=== PATIENT | female | born 1990 | race Caucasian/White ===

== ENCOUNTER 2016-08-25 14:44 | Emergency (ER) | payer BC ==
[2016-08-25 14:58] VITALS: BP 134/65
[2016-08-25] MEDS ORDERED: Sodium Chloride 0.9% 1,000 ML IV ONE (15:36)
[2016-08-25] MEDS ORDERED: Sodium Chloride 0.9% 10 ML Syringe FLUSH PRN (15:36)
[2016-08-25] MEDS ORDERED: Metoclopramide 10 MG/2 ML SDV IVPUSH ONE (15:36)
--- NOTE | 2016-08-25 15:37 | EDM.PDOC ---
ED HPI GENERAL MEDICAL PROBLEM - General Chief Complaint: Gastrointestinal Problem Stated Complaint: Nausea, vomiting Time Seen by Provider: 08/25/16 15:25 Source of Information: Reports: Patient, RN Notes Reviewed History Limitations: Reports: No Limitations - History of Present Illness INITIAL COMMENTS - FREE TEXT/NARRATIVE: 25 year old female presents to the ED with 2 day history of nausea and vomiting. She says she has been unable to keep any food or fluids down for the past two days. She feels lightheaded at times and has a headache. She reports a fever of 100.3 yesterday. No abdominal pain. Denies diarrhea. She was diagnosed with bacterial vaginosis and is on an antibiotic. She took 1 dose of the antibiotic prior to onset of symptoms and since has not been able to take the antibiotic due to the nausea and vomiting. She is unsure of the name of the antibiotic. She is , reportedly 12 weeks 3 days. [address] Horton and Lelo Almaraz ALTERNATIVE MEDICINE PRACTITIONER. She has not had this severe of nausea and vomiting with . She has two types of nausea medications at home for nausea assocaited with . She has tried taking it but says it's not helping. She is unsure of the names and it sounds like it's zofran and diclegis. Headache Pain Score (Numeric/FACES): 4 - Related Data Allergies Allergy/AdvReac Type Severity Reaction Status Date / Time ibuprofen Allergy Other Verified 08/24/15 08:04 venom-honey bee Allergy Other Verified 08/24/15 08:04 [bee venom (honey bee)] Home Meds: Home Meds Vit/Iron Fumarate/FA [ Vitamin Tablet] 1 each PO DAILY [History] valACYclovir [Valtrex] 500 mg PO BID 08/24/15 [History] Acetaminophen [Tylenol] 650 mg PO Q4H PRN #0 tablet 08/26/15 [Rx] Acetaminophen/oxyCODONE [Percocet 325-5 MG] 2 tab PO Q6H PRN #30 tablet [Rx] Benzocaine/Menthol [Dermoplast Pain Relief Draper] 1 spray TOP ASDIRECTED PRN #0 canister 08/26/15 [Rx] Docusate Sodium [Colace] 100 mg PO BID PRN #0 cap 08/26/15 [Rx] Past Medical History Genitourinary History: Reports: UTI, 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 No Lesions. 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 Has not been cleared. pt cannot recall which knee. Social & Family History - Family History Cardiac: Reports: Hypertension, Other (See Below) Endocrine/Metabolic: Reports: Diabetes, type II (PGM), Hypothyroidism (PGM) Oncologic: Reports: Breast (MOTHER'S SIDE) - Tobacco Use Smoking Status *Q: Former Smoker Used Tobacco, but Quit: Yes Month Tobacco Last Used: 3 years ago quit Second Hand Smoke Exposure: No - Caffeine Use Caffeine Use: Reports: Soda - Recreational Drug Use Recreational Drug Use: No ED ROS GENERAL - Review of Systems Review Of Systems: See Below Constitutional: Reports: Fever. Denies: Chills, Diaphoresis HEENT: Reports: No Symptoms. Denies: Throat Pain Respiratory: Reports: No Symptoms. Denies: Shortness of Breath, Cough Cardiovascular: Reports: No Symptoms. Denies: Chest Pain GI/Abdominal: Reports: Nausea, Vomiting. Denies: Abdominal Pain, Diarrhea : Reports: No Symptoms. Denies: Dysuria, Flank Pain, Frequency Neurological: Reports: Headache ED EXAM - Physical Exam Exam: See Below Exam Limited By: No Limitations General Appearance: Alert, WD/WN, No Apparent Distress Eye Exam: Bilateral Eye: EOMI, PERRL Throat/Mouth: Normal Inspection, Normal Oropharynx, Other (dry mucous membranes ) Respiratory/Chest: No Respiratory Distress, Lungs Clear, Normal Breath Sounds Cardiovascular: Regular Rate, Rhythm GI/Abdominal: Normal Bowel Sounds, Soft, Non-Tender, No Organomegaly, No Distention. No: Guarding, Rigid, Rebound, Tender Back Exam: Normal Inspection, Full Range of Motion. No: CVA Tenderness (L), CVA Tenderness (R) Neurological: Alert, Oriented, Normal Cognition, No Motor/Sensory Deficits Skin Exam: Warm, Dry, Intact Course - Vital Signs Last Recorded V/S: Last Vital Signs Temp 98.1 F 08/25/16 14:55 Pulse 99 08/25/16 14:55 Resp 16 08/25/16 14:55 BP 134/65 08/25/16 14:55 Pulse Ox 100 08/25/16 14:55 - Orders/Labs/Meds Orders: Active Orders 24 hr Category Date Time Status Heart Tones [RC] ASDIRECTED Care 08/25/16 15:36 Active Peripheral IV Care [RC] . DIRECTED Care 08/25/16 15:37 Active Sodium Chloride 0.9% [Saline Flush] Med 08/25/16 15:36 Active 10 ml FLUSH ASDIRECTED PRN Peripheral IV Insertion Adult [OM.PC] Stat Oth 08/25/16 15:36 Ordered Medication Orders Sodium Chloride (Saline Flush) 10 ml FLUSH ASDIRECTED PRN PRN Reason: Keep Vein Open Last Admin: 08/25/16 15:46 Dose: 10 ml Meds: Medications Generic Name Dose Route Start Last Admin Trade Name Freq PRN Reason Stop Dose Admin Sodium Chloride 10 ml 08/25/16 15:36 08/25/16 15:46 Saline Flush FLUSH 10 ml ASDIRECTED PRN Administration Keep Vein Open Discontinued Medications Generic Name Dose Route Start Last Admin Trade Name Freq PRN Reason Stop Dose Admin Sodium Chloride 1,000 mls @ 999 mls/hr 08/25/16 15:36 08/25/16 15:44 Normal Saline IV 08/25/16 16:36 999 mls/hr ONETIME ONE Administration Metoclopramide HCl 7.5 mg 08/25/16 15:36 08/25/16 15:45 Reglan IVPUSH 08/25/16 15:37 7.5 mg ONETIME ONE Administration - Re-Assessments/Exams Free Text/Narrative Re-Assessment/Exam: She has no abdominal pain or tenderness, imaging is not indicated. She reports a fever of 100.3 but is afebrile here. She has no diarrhea and no true fever, therefore gastroenteritis is unlikely. I suspect her symptoms are related to antibiotic side effects. Will give a liter of IV fluids and Reglan for nausea. Then will discharge home. She is to f/u with Dr. Horton or Lelo Almaraz this week. Departure - Departure Time of Disposition: 17:27 Disposition: Home, Self-Care 01 Condition: fair Clinical Impression: Nausea and vomiting during - Discharge Information Referrals: Rosmery Morse PA-C [Primary Care Provider] - Forms: ED Department Discharge Additional Instructions: Follow-up with Dr. Horton or Lelo Almaraz ALTERNATIVE MEDICINE PRACTITIONER this week for recheck I suspect your symptoms are related to the antibiotic you are taking. Continue to take antibiotic with food when able. Continue to take your prescriptions for nausea as directed. Drink fluids and advance your diet as tolerated Return to ER with any new or worsening symptoms. - My Orders Last 24 Hours: My Active Orders 08/25/16 15:36 Heart Tones [RC] ASDIRECTED Sodium Chloride 0.9% [Saline Flush] 10 ml FLUSH ASDIRECTED PRN Peripheral IV Insertion Adult [OM.PC] Stat 08/25/16 15:37 Peripheral IV Care [RC] . DIRECTED - Assessment/Plan Last 24 Hours: My Active Orders 08/25/16 15:36 Heart Tones [RC] ASDIRECTED Sodium Chloride 0.9% [Saline Flush] 10 ml FLUSH ASDIRECTED PRN Peripheral IV Insertion Adult [OM.PC] Stat 08/25/16 15:37 Peripheral IV Care [RC] . DIRECTED
== END 2016-08-25 17:15 | disposition home or self-care (01) ==
LOC: JD.ED 14:44
DX: O21.9 Vomiting of pregnancy, unspecified (principal); Z3A.12 12 weeks gestation of pregnancy; Z79.899 Other long term (current) drug therapy; Z87.891 Personal history of nicotine dependence; Z88.8 Allergy status to other drugs, medicaments and biological substances; Z91.030 Bee allergy status
CPT/HCPCS: 96361; 96374; 99284; J2765; J7040; J7050

== ENCOUNTER 2016-10-05 07:04 | Observation (INO) | payer BC ==
[2016-10-05] MEDS ORDERED: Misoprostol 200 MCG Tab PO ONE (08:32)
--- NOTE | 2016-10-05 08:49 | PCM.LDHP ---
L&D History of Present Illness - General Date of Service: 10/05/16 Admit Problem/Dx: Admission Diagnosis/Problem Admission Diagnosis/Problem Source of Information: Patient History Limitations: Reports: No Limitations - History of Present Illness Introduction:: 25-year-old 002 [place] 03/07/17 and estimated gestational age 17+ weeks patient presented to clinic and no heart tones had been observed on ultrasound performed on Friday10/01/16 after having had ultrasound that showed no heart tone activity for over 1 minute of continued observation repeat ultrasound was obtained on 10/04/16 and again no heart tone activity ration is placed in labor and delivery for induction of miscarriage (missed ) blood type O-positive antibody screen negative hemoglobin hematocrit on 08/14/1712.2/39.5 platelets 356,000 Pap smear negative immune rubella titer nonreactive serology patient did have Gardnerella vaginalis on urine culture treated hepatitis B surface antigen negative HIV negative and GC chlamydia probe negative Improves with: Reports: None Worsens with: Reports: None - Related Data Allergies/Adverse Reactions: Allergies Allergy/AdvReac Type Severity Reaction Status Date / Time ibuprofen Allergy Other Verified 10/05/16 08:33 venom-honey bee Allergy Other Verified 10/05/16 08:33 [bee venom (honey bee)] Home Medications: Home Meds Vit/Iron Fumarate/FA [ Vitamin Tablet] 1 each PO DAILY [History] Past Medical History Genitourinary History: Reports: UTI, Recurrent 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 No Lesions. Musculoskeletal History: Reports: Other (See Below) Other Musculoskeletal History: right elbow and right "pinky" toe fracture Psychiatric History: Reports: Anxiety, Depression Hematologic History: Reports: Anemia Oncologic (Cancer) History: Reports: Other (See Below) Other Oncologic History: HPV Dermatologic History: Reports: Eczema - Infectious Disease History Infectious Disease History: Reports: MRSA Other Infectious Disease History: 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 Has not been cleared. pt cannot recall which knee. - Past Surgical History HEENT Surgical History: Reports: Oral Surgery Social & Family History - Family History Cardiac: Reports: Hypertension, Other (See Below) Endocrine/Metabolic: Reports: Diabetes, type II, Hypothyroidism Oncologic: Reports: Breast - Tobacco Use Smoking Status *Q: Former Smoker Used Tobacco, but Quit: Yes Month Tobacco Last Used: 2014 Second Hand Smoke Exposure: No - Caffeine Use Caffeine Use: Reports: Soda - Recreational Drug Use Recreational Drug Use: No H&P Review of Systems - Review of Systems: Review Of Systems: See Below General: Reports: No Symptoms HEENT: Reports: No Symptoms Pulmonary: Reports: No Symptoms Cardiovascular: Reports: No Symptoms Gastrointestinal: Reports: No Symptoms Genitourinary: Reports: No Symptoms Musculoskeletal: Reports: No Symptoms Skin: Reports: No Symptoms Psychiatric: Reports: No Symptoms Neurological: Reports: No Symptoms Hematologic/Lymphatic: Reports: No Symptoms Immunologic: Reports: No Symptoms L&D Exam - Exam Exam: See Below - Vital Signs Vital Signs: Last Vital Signs Temp 98.0 F 10/05/16 07:26 Pulse 92 10/05/16 07:26 Resp 18 10/05/16 07:26 BP 125/86 10/05/16 07:26 Pulse Ox 99 10/05/16 07:26 Weight: 173 lb 6.4 oz - OB Specific Fundal Height In cm: 17 Heart Tones per Min: 0 Heart Rate (FHR) Variability: Absent; Amplitude Undetectable - Exam General: Alert, Oriented HEENT: Mucosa Moist & [place] Neck: Supple, Trachea Midline Lungs: Clear to Auscultation, Normal Respiratory Effort Cardiovascular: Regular Rate, Regular Rhythm Abdomen: Normal Bowel Sounds, Soft, Pelvis Stable Genitourinary: Normal external exam Back Exam: Normal Inspection, Full Range of Motion Extremities: Normal Inspection Skin: Warm, Dry, Intact Neurological: Reflexes Equal Bilateral Psychiatric: Alert, Normal Affect, Normal Mood - Problem List (1) Missed with demise before 20 completed weeks of gestation SNOMED Code(s): 59581501 ICD Code: O02.1 - MISSED Status: Acute Current Visit: No (2) 17 weeks gestation of SNOMED Code(s): 33947663 ICD Code: Z3A.17 - 17 WEEKS GESTATION OF Status: Acute Current Visit: No Problem List Initiated/Reviewed/Updated: No Orders Last 24hrs: Active Orders 24 hr Category Date Time Status Regular Diet [DIET] Diet 10/05/16 Breakfast Active Assessment/Plan Comment:: Plan medication to complete miscarriage
[2016-10-05] MEDS ORDERED: Sodium Chloride 0.9% 10 ML Syringe FLUSH PRN (08:54)
[2016-10-05] MEDS: Oxytocin/Lactated Ringers 10 UNIT/1,000 ML BAG IV SCH ×2 (10:46→22:17)
[2016-10-05] MEDS: Lactated Ringers 1,000 ML IV SCH ×2 (10:46→16:39)
[2016-10-05] MEDS ORDERED: Nalbuphine 20 MG/1 ML Amp IVPUSH ONE (13:56)
--- NOTE | 2016-10-05 15:07 | PCM.SN ---
- Free Text/Narrative Note: Exam revealed intact gestational sac protruding through the cervix about 4-5 cm , cervix about 4 cm. Bloody show. Stable. Will get epidural. Satisfactory progress.
[2016-10-05] MEDS ORDERED: diphenhydrAMINE 50 MG/ML SDV IVPUSH PRN (15:48)
[2016-10-05] MEDS ORDERED: ePHEDrine 50 MG/ML SDV IVPUSH PRN (15:48)
[2016-10-05] MEDS ORDERED: Bupivacaine 0.25% 10 ML SDV ONE (16:00)
[2016-10-05] MEDS: fentaNYL 100 MCG/2 ML SDV EPIDUR PRN (16:11)
[2016-10-05] MEDS: Bupivacaine/fentaNYL/NS 100 ML Bag EPIDUR SCH ×2 (16:12→22:58)
--- NOTE | 2016-10-05 16:14 | PCM.PREANE ---
Preanesthetic Assessment - Anesthesia/Transfusion/Family Hx Anesthesia History: Prior Anesthesia Without Reaction Family History of Anesthesia Reaction: No Transfusion History: No Prior Transfusion(s) Type of Transfusion Reactions: Reports: Unknown - Review of Systems General: No Symptoms Pulmonary: No Symptoms Cardiovascular: No Symptoms Gastrointestinal: No symptoms Neurological: No Symptoms Other: Reports: None - Physical Assessment O2 Sat by Pulse Oximetry: 99 Respiratory Rate: 18 Vital Signs: Last Vital Signs Temp 98.0 F 10/05/16 07:26 Pulse 92 10/05/16 07:26 Resp 18 10/05/16 07:26 BP 125/86 10/05/16 07:26 Pulse Ox 99 10/05/16 07:26 Height: 6 ft Weight: 78.653 kg ASA Class: 2 Mental Status: Alert & Oriented x3 Airway Class: Mallampati = 1 Dentition: Reports: Normal Dentition Thyro-Mental Finger Breadths: 3 Mouth Opening Finger Breadths: 3 ROM/Head Extension: Full Lungs: Clear to auscultation, Normal respiratory effort Cardiovascular: Regular Rate, Regular Rhythm - Lab Values: Laboratory Last Values WBC 9.98 K/mm3 (3.98-10.04) 10/05/16 09:12 RBC 4.55 M/mm3 (3.98-5.22) 10/05/16 09:12 Hgb 12.9 gm/L (11.2-15.7) 10/05/16 09:12 Hct 37.5 % (34.1-44.9) 10/05/16 09:12 MCV 82.4 fl (79.4-94.8) 10/05/16 09:12 MCH 28.4 pg (25.6-32.2) 10/05/16 09:12 MCHC 34.4 g/dl (32.2-35.5) 10/05/16 09:12 RDW Std Deviation 44.4 fL (36.4-46.3) 10/05/16 09:12 Plt Count 296 K/mm3 (182-369) 10/05/16 09:12 MPV 10.9 fl (9.4-12.3) 10/05/16 09:12 Neut % (Auto) 67.9 % (34.0-71.1) 10/05/16 09:12 Lymph % (Auto) 23.4 % (19.3-51.7) 10/05/16 09:12 [place] % (Auto) 6.2 % (4.7-12.5) 10/05/16 09:12 Eos % (Auto) 1.1 (0.7-5.8) 10/05/16 09:12 Baso % (Auto) 0.6 % (0.1-1.2) 10/05/16 09:12 Neut # (Auto) 6.77 K/mm3 (1.56-6.13) H 10/05/16 09:12 Lymph # (Auto) 2.34 K/mm3 (1.18-3.74) 10/05/16 09:12 [place] # (Auto) 0.62 K/mm3 (0.24-0.36) H 10/05/16 09:12 Eos # (Auto) 0.11 K/mm3 (0.04-0.36) 10/05/16 09:12 Baso # (Auto) 0.06 K/mm3 (0.01-0.08) 10/05/16 09:12 Blood Type O POSITIVE 10/05/16 09:12 Gel Antibody Screen Negative 10/05/16 09:12 - Allergies Allergies/Adverse Reactions: Allergies Allergy/AdvReac Type Severity Reaction Status Date / Time ibuprofen Allergy Other Verified 10/05/16 08:33 venom-honey bee Allergy Other Verified 10/05/16 08:33 [bee venom (honey bee)] - Blood Blood Available: No - Acknowledgements Anesthesia Type Planned: Epidural PreAnesthesia Questionnaire Cardiovascular History: Reports: None Respiratory History: Reports: None Genitourinary History: Reports: UTI, Recurrent 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 No Lesions. 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 Has not been cleared. pt cannot recall which knee. - Past Surgical History HEENT Surgical History: Reports: Oral Surgery - SUBSTANCE USE Smoking Status *Q: Former Smoker Tobacco Use Within Last Twelve Months: No Second Hand Smoke Exposure: No Days Per Week of Alcohol Use: 0 Recreational Drug Use History: No - HOME MEDS Home Medications: Home Meds Vit/Iron Fumarate/FA [ Vitamin Tablet] 1 each PO DAILY [History] - CURRENT (IN HOUSE) MEDS Current Meds: Current Medications Diphenhydramine HCl (Benadryl) 25 mg IVPUSH Q6H PRN PRN Reason: pruritis Ephedrine Sulfate (Ephedrine Sulfate) 5 mg IVPUSH ASDIRECTED PRN PRN Reason: Hypotension Fentanyl (Sublimaze) 100 mcg EPIDUR Q3H PRN PRN Reason: Pain Last Admin: 10/05/16 16:11 Dose: 100 mcg Fentanyl/Bupivacaine HCl (Fentanyl/Bupivacaine/Ns 2 Mcg-0.125% 100 Ml) 100 ml EPIDUR ASDIRECTED KAYLEIGH Last Admin: 10/05/16 16:12 Dose: 100 ml Lactated Ringer's (Ringers, Lactated) 1,000 mls @ 40 mls/hr IV ASDIRECTED KAYLEIGH Last Admin: 10/05/16 10:46 Dose: 40 mls/hr Oxytocin/Lactated Ringer's (Pitocin In Lr 10 Units/1,000 Ml) 10 unit in 1,000 mls @ 12 mls/hr IV TITRATE KAYLEIGH; 2 MUNITS/MIN PRN Reason: Protocol Last Titration: 10/05/16 13:57 Dose: 14 munits/min, 84 mls/hr Sodium Chloride (Saline Flush) 10 ml FLUSH ASDIRECTED PRN PRN Reason: Keep Vein Open Discontinued Medications Misoprostol (Cytotec) 800 mcg PO ONETIME ONE Stop: 10/05/16 08:33 Last Admin: 10/05/16 08:47 Dose: 800 mcg Nalbuphine HCl (Nubain) 10 mg IVPUSH ONETIME ONE Stop: 10/05/16 13:57
[2016-10-05] MEDS ORDERED: Misoprostol 200 MCG Tab PO PRN (19:07)
--- NOTE | 2016-10-05 19:11 | PCM.SN ---
- Free Text/Narrative Note: Examined patient about 500 ml of clots and blood removed from vagina, fetus at cervical os but not into cervical os as yet. Pitocin at 20 min/min. Patient stable.
[2016-10-05] MEDS ORDERED: Ondansetron 4 MG/2 ML SDV IVPUSH PRN (19:29)
[2016-10-05] MEDS ORDERED: Ondansetron 4 MG/2 ML SDV ONE (19:30)
[2016-10-06] MEDS ORDERED: cefOXitin 1 GM in Premix Bag 1 BAG IV SCH ×3 (00:30)
[2016-10-06] MEDS ORDERED: Oxytocin/Lactated Ringers 10 UNIT/1,000 ML BAG IV ONE (04:49)
[2016-10-06] MEDS ORDERED: Citric Acid/Sodium Citrate Solution 30 ML Cup PO ONE (05:15)
[2016-10-06] MEDS ORDERED: ceFAZolin 2 GM in Premix Bag 1 BAG IV ONE (05:18)
--- NOTE | 2016-10-06 05:26 | PCM.SN ---
- Free Text/Narrative Note: Called at 0411 hours that fetus and portions of the placenta hadn't passed out of the vagina patient examined and additional placental tissue and membranous tissue removed with ring forceps but additional tissue remains in the uterus patient will need to proceed with D&C estimated blood loss at the time of the completion of the miscarriage has been approximately 100 250 mL plus far not counting the 500 mL clot earlier in the day. Type and Rh O+ Missed now incomplete Will proceed with suction and sharp curettage
[2016-10-06] MEDS: Oxytocin/Lactated Ringers 10 UNIT/1,000 ML BAG IV SCH (05:27)
[2016-10-06] MEDS ORDERED: Citric Acid/Sodium Citrate Solution 30 ML Cup ONE (05:27)
[2016-10-06] MEDS ORDERED: Lidocaine 2% with EPINEPHrine 1:200,000 20 ML SDV ONE (05:35)
[2016-10-06] MEDS ORDERED: Midazolam 1 MG/ML 2 ML SDV ONE (05:36)
[2016-10-06] MEDS: fentaNYL 100 MCG/2 ML SDV EPIDUR PRN (05:41)
[2016-10-06] MEDS ORDERED: Metoclopramide 10 MG/2 ML SDV ONE (06:06)
[2016-10-06] MEDS ORDERED: ceFAZolin 1 GM Vial ONE (06:07)
[2016-10-06] MEDS ORDERED: Ondansetron 4 MG/2 ML SDV IVPUSH PRN ×2 (06:09→07:39)
[2016-10-06] MEDS ORDERED: fentaNYL 100 MCG/2 ML SDV IVPUSH PRN (06:09)
[2016-10-06] MEDS ORDERED: Ondansetron 4 MG/2 ML SDV ONE (06:27)
--- NOTE | 2016-10-06 06:38 | PCM.OPNOTE ---
- General Post-Op/Procedure Note Date of Surgery/Procedure: 10/06/16 Operative Procedure(s): Suction and sharp curettage [id number] Pre Op Diagnosis: Missed /incomplete Post-Op Diagnosis: Same Anesthesia Technique: Epidural Primary Surgeon: Avery Horton Secondary Surgeon: Sophia Roberts ([id number]) Anesthesia Provider: Redd Barajas Fluid Replacement, Intraop: 700 Output, Urine Amount: 30 EBL in mLs: 50 Drain/Tube Comments:: Norman catheter removed after surgery Complications: None Condition: Good Free Text/Narrative:: Intake & Output 10/05/16 10/05/16 10/06/16 14:59 22:59 06:59 Intake Total 1560 Balance 1560 Patient had delivered the fetus and portion of the placenta and labor and delivery (missed converted to an incomplete ) and subsequently taken to the operating room for dilatation and sharp and suction curettage patient was transported to operating room #2 and placed under epidural anesthesia in low dorsal lithotomy position and prepared and draped in sterile fashion SCDs in place and functioning prior surgery Ancef 2 g intravenously given prior surgery timeout performed confirming name date of and procedure is suction and sharp curettage for incomplete . The uterus sounded to 15 cm #16 suction cannula was inserted carefully suction applied and suction curettage performed followed by gentle sharp curettage followed by 12 mm cannula with suction curettage and all tissue sent to pathology for tissue evaluation. Estimated blood loss at the procedure was approximately 50 mL patient tolerated procedure well she is Rh+ patient transported postanesthesia care unit in satisfactory condition no blood transfusions required Norman catheter removed while in the operating room after completion of the procedure sponge needle sharp count correct 2
--- NOTE | 2016-10-06 06:43 | PCM.POSTAN ---
POST ANESTHESIA ASSESSMENT - MENTAL STATUS Mental Status: alert, oriented - VITAL SIGNS Pulse Rate: 84 SaO2: 100 Resp Rate: 18 Blood Pressure: 110/74 Temperature: 97.6 F - RESPIRATORY Respiratory Status: respiratory rate WNL, airway patent, O2 saturation stable, supplemental oxygen - CARDIOVASCULAR CV Status: pulse rate WNL, blood pressure stable - GASTROINTESTINAL GI Status: no symptoms - PAIN Pain Score: 0 - POST OP HYDRATION Hydration Status: adequate & stable
--- NOTE | 2016-10-06 06:48 | PCM48HPAN ---
Post Anesthesia Note - EVALUATION WITHIN 48HRS OF ANESTHETIC Vital Signs in Normal Range: Yes Patient Participated in Evaluation: Yes Respiratory Function Stable: Yes Airway Patent: Yes Cardiovascular Function Stable: Yes Hydration Status Stable: Yes Pain Control Satisfactory: Yes Nausea and Vomiting Control Satisfactory: Yes Mental Status Recovered: Yes
[2016-10-06] MEDS ORDERED: Acetaminophen/HYDROcodone 325-5 MG Tab PO PRN (07:39)
[2016-10-06] MEDS ORDERED: Acetaminophen 325 MG Tab PO PRN (07:39)
--- NOTE | 2016-10-06 08:28 | PCM.DCSUM1 ---
Discharge Summary - Hospital Course Free Text/Narrative:: [facility] LIVE Provider Simple Note Patient Name: LALO GARCIA Date of : 89 Patient Status: Observation Attending Provider: Avery Horton Date: 10/06/16 05:23 Initialization Date: 10/06/16 05:23 Addendum entered and electronically signed by Avery Horton MD 10/06/16 07 :15: Fetus and portion of placenta passed at 0405 10/06/16Friday Original Note: - Free Text/Narrative Note: Called at 0411 hours that fetus and portions of the placenta hadn't passed out of the vagina patient examined and additional placental tissue and membranous tissue removed with ring forceps but additional tissue remains in the uterus patient will need to proceed with D&C estimated blood loss at the time of the completion of the miscarriage has been approximately 100 250 mL plus far not counting the 500 mL clot earlier in the day. Type and Rh O+ Missed now incomplete Will proceed with suction and sharp curettage [facility] LIVE Post-Op/Procedure Note Patient Name: LALO GARCIA Date of : 89 Patient Status: Observation Attending Provider: Avery Horton Date: 10/06/16 06:33 Initialization Date: 10/06/16 06:33 - General Post-Op/Procedure Note Date of Surgery/Procedure: 10/06/16 Operative Procedure(s): Suction and sharp curettage [id number] Pre Op Diagnosis: Missed /incomplete Post-Op Diagnosis: Same Anesthesia Technique: Epidural Primary Surgeon: Avery Horton Secondary Surgeon: Sophia Roberts (MS3) Anesthesia Provider: Redd Barajas Fluid Replacement, Intraop: 700 Output, Urine Amount: 30 EBL in mLs: 50 Drain/Tube Comments:: Norman catheter removed after surgery Complications: None Condition: Good Free Text/Narrative:: Intake & Output 10/05/16 10/05/16 10/06/16 14:59 22:59 06:59 Intake Total 1560 Balance 1560 Patient had delivered the fetus and portion of the placenta and labor and delivery (missed converted to an incomplete ) and subsequently taken to the operating room for dilatation and sharp and suction curettage patient was transported to operating room #2 and placed under epidural anesthesia in low dorsal lithotomy position and prepared and draped in sterile fashion SCDs in place and functioning prior surgery Ancef 2 g intravenously given prior surgery timeout performed confirming name date of and procedure is suction and sharp curettage for incomplete . The uterus sounded to 15 cm #16 suction cannula was inserted carefully suction applied and suction curettage performed followed by gentle sharp curettage followed by 12 mm cannula with suction curettage and all tissue sent to pathology for tissue evaluation. Estimated blood loss at the procedure was approximately 50 mL patient tolerated procedure well she is Rh+ patient transported postanesthesia care unit in satisfactory condition no blood transfusions required Norman catheter removed while in the operating room after completion of the procedure sponge needle sharp count correct 2 HPI Initial Comments: [facility] LIVE Provider Simple Note Patient Name: LALO GARCIA Date of : 89 Patient Status: Observation Attending Provider: Avery Horton Date: 10/06/16 05:23 Initialization Date: 10/06/16 05:23 Addendum entered and electronically signed by Avery Horton MD 10/06/16 07 :15: Fetus and portion of placenta passed at 0405 10/06/16Friday Original Note: - Free Text/Narrative Note: Called at 0411 hours that fetus and portions of the placenta hadn't passed out of the vagina patient examined and additional placental tissue and membranous tissue removed with ring forceps but additional tissue remains in the uterus patient will need to proceed with D&C estimated blood loss at the time of the completion of the miscarriage has been approximately 100 250 mL plus far not counting the 500 mL clot earlier in the day. Type and Rh O+ Missed now incomplete Will proceed with suction and sharp curettage [facility]IVE Post-Op/Procedure Note Patient Name: LALO GARCIA Date of : 89 Patient Status: Observation Attending Provider: Avery Horton Date: 10/06/16 06:33 Initialization Date: 10/06/16 06:33 - General Post-Op/Procedure Note Date of Surgery/Procedure: 10/06/16 Operative Procedure(s): Suction and sharp curettage [id number] Pre Op Diagnosis: Missed /incomplete Post-Op Diagnosis: Same Anesthesia Technique: Epidural Primary Surgeon: Avery Horton Secondary Surgeon: Sophia Roberts (MS3) Anesthesia Provider: Redd Barajas Fluid Replacement, Intraop: 700 Output, Urine Amount: 30 EBL in mLs: 50 Drain/Tube Comments:: Norman catheter removed after surgery Complications: None Condition: Good Free Text/Narrative:: Intake & Output 10/05/16 10/05/16 10/06/16 14:59 22:59 06:59 Intake Total 1560 Balance 1560 Patient had delivered the fetus and portion of the placenta and labor and delivery (missed converted to an incomplete ) and subsequently taken to the operating room for dilatation and sharp and suction curettage patient was transported to operating room #2 and placed under epidural anesthesia in low dorsal lithotomy position and prepared and draped in sterile fashion SCDs in place and functioning prior surgery Ancef 2 g intravenously given prior surgery timeout performed confirming name date of and procedure is suction and sharp curettage for incomplete . The uterus sounded to 15 cm #16 suction cannula was inserted carefully suction applied and suction curettage performed followed by gentle sharp curettage followed by 12 mm cannula with suction curettage and all tissue sent to pathology for tissue evaluation. Estimated blood loss at the procedure was approximately 50 mL patient tolerated procedure well she is Rh+ patient transported postanesthesia care unit in satisfactory condition no blood transfusions required Noramn catheter removed while in the operating room after completion of the procedure sponge needle sharp count correct 2 Brief History: [facility] LIVE . Provider Simple Note. [facility]: [id number]. Date of : Patient Status: Observation. Attending Provider: Avery Hortonccount Number: [id number]. Date: 10/06/16 05:23Initialization Date: 10/06/16 05:23. Addendum entered and electronically signed by Avery Horton MD 10/06/16 07:15: Fetus and portion of placenta passed at 0405 10/06/16Friday. Original Note: - Free Text/Narrative. Note: Called at 0411 hours that fetus and portions of the placenta hadn't passed out of the vagina patient examined and additional placental tissue and membranous tissue removed with ring forceps but additional tissue remains in the uterus patient will need to proceed with D&C estimated blood loss at the time of the completion of the miscarriage has been approximately 100 250 mL plus far not counting the 500 mL clot earlier in the day. Type and Rh O+. Missed now incomplete Will proceed with suction and sharp curettage. [facility] LIVE . Post-Op/Procedure Note. [facility]: [id number]. Date of : 89Patient Status: Observation. Attending Provider: Avery Hortonccount Number: [id number]. Date: 10/06/16 06:33Initialization Date: 10/06/16 06:33. - General Post-Op/Procedure Note. Date of Surgery/ Procedure: 10/06/16. Operative Procedure(s): Suction and sharp curettage [id number]. Pre Op Diagnosis: Missed /incomplete . Post-Op Diagnosis: Same. Anesthesia Technique: Epidural. Primary Surgeon: Avery Horton. Secondary Surgeon: Sophia Roberts (MS3). Anesthesia Provider: Redd Barajas. Fluid Replacement, Intraop: 700. Output, Urine Amount: 30. EBL in mLs : 50. Drain/Tube Comments:: Norman catheter removed after surgery. Complications: None. Condition: Good. Free Text/Narrative:: Intake & Output. 10/05/1706/. 14:5922:[id number]:59. Intake Hjiab0979. [id number]. Patient had delivered the fetus and portion of the placenta and labor and delivery (missed converted to an incomplete ) and subsequently taken to the operating room for dilatation and sharp and suction curettage patient was transported to operating room #2 and placed under epidural anesthesia in low dorsal lithotomy position and prepared and draped in sterile fashion SCDs in place and functioning prior surgery Ancef 2 g intravenously given prior surgery timeout performed confirming name date of and procedure is suction and sharp curettage for incomplete . The uterus sounded to 15 cm #16 suction cannula was inserted carefully suction applied and suction curettage performed followed by gentle sharp curettage followed by 12 mm cannula with suction curettage and all tissue sent to pathology for tissue evaluation. Estimated blood loss at the procedure was approximately 50 mL patient tolerated procedure well she is Rh+ patient transported postanesthesia care unit in satisfactory condition no blood transfusions required Norman catheter removed while in the operating room after completion of the procedure sponge needle sharp count correct 2 - Discharge Data Discharge Date: 10/06/16 Discharge Disposition: Home, Self-Care 01 Condition: Good - Discharge Diagnosis/Problem(s) (1) Missed with demise before 20 completed weeks of gestation SNOMED Code(s): 88407660 ICD Code: O02.1 - MISSED Status: Acute Current Visit: No (2) 17 weeks gestation of SNOMED Code(s): 69356574 ICD Code: Z3A.17 - 17 WEEKS GESTATION OF Status: Acute Current Visit: No - Patient Summary/Data Operative Procedure(s) Performed: Suction and sharp curettage [id number] Complications: None Consults: None Hospital Course: Uneventful - Patient Instructions Diet: Heart Healthy Diet Driving: Do Not Drive (48 hours after last Percocet or for 48 hours after anesthesia) Showering/Bathing: May Shower, No Tub Bathing/Swimming (For 6 weeks) Notify Provider of: Fever, Increased Pain, Swelling and Redness, Drainage, Nausea and/or Vomiting - Discharge Plan Prescriptions/Med Rec: Misoprostol [Cytotec] 200 mcg PO Q6H #12 tablet oxyCODONE HCl/Acetaminophen [Percocet 5-325 mg Tablet] 1 each PO Q6H #20 tablet Home Medications: Home Meds Vit/Iron Fumarate/FA [ Vitamin Tablet] 1 each PO DAILY [History] Acetaminophen [Tylenol] 650 mg PO Q6H PRN #0 tablet 10/06/16 [Rx] Misoprostol [Cytotec] 200 mcg PO Q6H #12 tablet 10/06/16 [Rx] oxyCODONE HCl/Acetaminophen [Percocet 5-325 mg Tablet] 1 each PO Q6H #20 tablet 10/06/16 [Rx] Referrals: Avery Horton MD [Primary Care Provider] - (4 weeks) - Discharge Summary/Plan Comment DC Time >30 min.: No - Patient Data Vitals - Most Recent: Last Vital Signs Temp 98.0 F 10/06/16 07:39 Pulse 90 10/06/16 07:39 Resp 16 10/06/16 07:39 BP 100/59 L 10/06/16 07:39 Pulse Ox 100 10/06/16 07:39 Weight - Most Recent: 173 lb 6.4 oz I&O - Last 24 hours: Intake & Output 10/05/16 10/06/16 10/06/16 22:59 06:59 14:59 Intake Total 1560 700 700 Output Total 30 Balance 1560 670 700 Lab Results - Last 24 hrs: Laboratory Results - last 24 hr 10/05/16 10/05/16 Range/Units 09:12 09:12 WBC 9.98 (3.98-10.04) K/mm3 RBC 4.55 (3.98-5.22) M/mm3 Hgb 12.9 (11.2-15.7) gm/L Hct 37.5 (34.1-44.9) % MCV 82.4 (79.4-94.8) fl MCH 28.4 (25.6-32.2) pg MCHC 34.4 (32.2-35.5) g/dl RDW Std Deviation 44.4 (36.4-46.3) fL Plt Count 296 (182-369) K/mm3 MPV 10.9 (9.4-12.3) fl Neut % (Auto) 67.9 (34.0-71.1) % Lymph % (Auto) 23.4 (19.3-51.7) % Stephenson % (Auto) 6.2 (4.7-12.5) % Eos % (Auto) 1.1 (0.7-5.8) Baso % (Auto) 0.6 (0.1-1.2) % Neut # (Auto) 6.77 H (1.56-6.13) K/mm3 Lymph # (Auto) 2.34 (1.18-3.74) K/mm3 Stephenson # (Auto) 0.62 H (0.24-0.36) K/mm3 Eos # (Auto) 0.11 (0.04-0.36) K/mm3 Baso # (Auto) 0.06 (0.01-0.08) K/mm3 Blood Type O POSITIVE Gel Antibody Screen Negative Crossmatch See Detail Med Orders - Current: Current Medications Acetaminophen (Tylenol) 650 mg PO Q4H PRN PRN Reason: Pain (mild 1-3) Hydrocodone Bitart/Acetaminophen ([place] 325-5 Mg) 2 tab PO Q3H PRN PRN Reason: Pain (moderate 4-6) Ondansetron HCl (Zofran) 4 mg IVPUSH Q4H PRN PRN Reason: Nausea/Vomiting Discontinued Medications Cefazolin Sodium (Ancef) Confirm Administered Dose 2 gm .ROUTE .STK-MED ONE Stop: 10/06/16 06:08 Citric Acid/Sodium Citrate (Bicitra Solution) Confirm Administered Dose 30 ml .ROUTE .STK-MED ONE Stop: 10/06/16 05:28 Diphenhydramine HCl (Benadryl) 25 mg IVPUSH Q6H PRN PRN Reason: pruritis Ephedrine Sulfate (Ephedrine Sulfate) 5 mg IVPUSH ASDIRECTED PRN PRN Reason: Hypotension Fentanyl (Sublimaze) 100 mcg EPIDUR Q3H PRN PRN Reason: Pain Last Admin: 10/06/16 05:41 Dose: 100 mcg Fentanyl (Sublimaze) 50 mcg IVPUSH Q5M PRN PRN Reason: Pain Fentanyl/Bupivacaine HCl (Fentanyl/Bupivacaine/Ns 2 Mcg-0.125% 100 Ml) 100 ml EPIDUR ASDIRECTED [facility] Last Admin: 10/05/16 22:58 Dose: 100 ml Lactated Ringer's (Ringers, Lactated) 1,000 mls @ 40 mls/hr IV ASDIRECTED [facility] Last Admin: 10/05/16 16:39 Dose: 40 mls/hr Oxytocin/Lactated Ringer's (Pitocin In Lr 10 Units/1,000 Ml) 10 unit in 1,000 mls @ 12 mls/hr IV TITRATE KAYLEIGH; 2 MUNITS/MIN PRN Reason: Protocol Last Admin: 10/06/16 05:27 Dose: 250 mls/hr Cefoxitin Sodium 1 gm/ Premix 50 mls @ 100 mls/hr IV Q6H [facility] Last Admin: 10/06/16 00:45 Dose: Not Given Cefoxitin Sodium 1 gm/ Premix 50 mls @ 100 mls/hr IV Q6H KAYLEIGH Last Admin: 10/06/16 01:13 Dose: 100 mls/hr Oxytocin/Lactated Ringer's (Pitocin In Lr 10 Units/1,000 Ml) Confirm Administered Dose 10 unit in 1,000 mls @ as directed IV .STK-MED ONE Stop: 10/06/16 04:50 Last Admin: 10/06/16 05:29 Dose: Not Given Cefazolin Sodium/Dextrose 2 gm (/ Premix) 50 mls @ 100 mls/hr IV ONETIME ONE Stop: 10/06/16 05:47 Lidocaine/Epinephrine (Xylocaine-Mpf 2%-Epi 1:200,000) Confirm Administered Dose 20 ml .ROUTE .STK-MED ONE Stop: 10/06/16 05:36 Metoclopramide HCl (Reglan) Confirm Administered Dose 10 mg .ROUTE .STK-MED ONE Stop: 10/06/16 06:07 Midazolam HCl (Versed 1 Mg/Ml) Confirm Administered Dose 2 mg .ROUTE .STK-MED ONE Stop: 10/06/16 05:37 Misoprostol (Cytotec) 800 mcg PO ONETIME ONE Stop: 10/05/16 08:33 Last Admin: 10/05/16 08:47 Dose: 800 mcg Misoprostol (Cytotec) 400 mcg PO Q12H PRN PRN Reason: Bleeding Stop: 10/06/16 07:08 Last Admin: 10/05/16 19:35 Dose: 400 mcg Nalbuphine HCl (Nubain) 10 mg IVPUSH ONETIME ONE Stop: 10/05/16 13:57 Ondansetron HCl (Zofran) 4 mg IVPUSH Q8H PRN PRN Reason: Nausea Last Admin: 10/05/16 19:35 Dose: 4 mg Ondansetron HCl (Zofran) Confirm Administered Dose 4 mg .ROUTE .STK-MED ONE Stop: 10/05/16 19:31 Last Admin: 10/05/16 19:43 Dose: Not Given Ondansetron HCl (Zofran) Confirm Administered Dose 4 mg .ROUTE .STK-MED ONE Stop: 10/06/16 06:28 Ondansetron HCl (Zofran) 4 mg IVPUSH ONETIME PRN PRN Reason: Nausea/Vomiting Sodium Chloride (Saline Flush) 10 ml FLUSH ASDIRECTED PRN PRN Reason: Keep Vein Open *Q Meaningful Use (DIS) - VTE *Q VTE Criteria *Q: - Stroke *Q Stroke Criteria *Q: - AMI *Q AMI Criteria *Q:
[2016-10-06 09:45] VITALS: BP 115/70
== END 2016-10-06 12:45 | disposition home or self-care (01) ==
LOC: JD.OBCHECK 07:04 → JD.OB 07:05
PROVIDERS: ADMIT Obstetrics & Gynecology; ATTEND Obstetrics & Gynecology
PROC: 10D07Z8 Extraction of Products of Conception, Other, Via Natural or Artificial Opening (ICD-10-PCS; principal; 2016-10-05)
DX: O02.1 Missed abortion (principal); Z3A.17 17 weeks gestation of pregnancy; Z88.6 Allergy status to analgesic agent; Z91.030 Bee allergy status; Z79.899 Other long term (current) drug therapy; Z87.440 Personal history of urinary (tract) infections; Z86.19 Personal history of other infectious and parasitic diseases; Z86.14 Personal history of Methicillin resistant Staphylococcus aureus infection; Z87.891 Personal history of nicotine dependence; Z98.890 Other specified postprocedural states
CPT/HCPCS: 36415; 59821; 85025; 86850; 86900; 86901; 87641; 88305; 96361; 96374; 96375; A9270; J0690; J0694; J2250; J2405; J2590; J2765; J3010; J7120; 01967; 86922

== ENCOUNTER 2017-02-17 10:14 | Observation (INO) | payer MEDICAID ==
[2017-02-17] MEDS ORDERED: Sodium Chloride 0.9% 10 ML Syringe FLUSH PRN (10:34)
[2017-02-17] MEDS ORDERED: Lactated Ringers 1,000 ML IV SCH (10:45)
[2017-02-17] MEDS ORDERED: Misoprostol 200 MCG Tab VAG ONE (10:47)
[2017-02-17] MEDS ORDERED: Ondansetron 4 MG/2 ML SDV IVPUSH PRN ×2 (10:49→17:30)
[2017-02-17] MEDS ORDERED: Acetaminophen 325 MG Tab PO PRN ×2 (10:52→17:30)
[2017-02-17] MEDS ORDERED: Oxytocin 10 Units/1 ML SDV ONE (11:31)
--- NOTE | 2017-02-17 12:55 | PCM.SN ---
- Free Text/Narrative Note: 800 g of Cytotec has been placed patient having some contractions. Also Pitocin dilute solution begun increasing every 20 minutes as per protocol. Patient stable.
--- NOTE | 2017-02-17 12:55 | PCM.LDHP ---
L&D History of Present Illness - General Date of Service: 02/17/17 Admit Problem/Dx: Patient Status Order with Admit Dx/Problem 02/17/17 10:35 Patient Status [ADT] Routine Admission Diagnosis/Problem Admission Diagnosis/Problem , spontaneous incomplete with hemorrhage Source of Information: Patient History Limitations: Reports: No Limitations - History of Present Illness Introduction:: 26 y/o 012 patient's MARINA 08/19/17 presented to clinic last Friday with spotting bleeding ultrasound revealed no heart tones ultrasound repeated again today no heart tones with missed patient is 13+ weeks estimated gestational age sent to labor and delivery for Cytotec induction of the missed . Improves with: Reports: None Worsens with: Reports: None Associated Symptoms: Reports: N - Related Data Allergies/Adverse Reactions: Allergies Allergy/AdvReac Type Severity Reaction Status Date / Time ibuprofen Allergy Other Verified 10/05/16 08:33 venom-honey bee Allergy Other Verified 10/05/16 08:33 [bee venom (honey bee)] Home Medications: Home Meds Vit/Iron Fumarate/FA [ Vitamin Tablet] 1 each PO DAILY [History] Acetaminophen [Tylenol] 650 mg PO Q6H PRN #0 tablet 10/06/16 [Rx] Misoprostol [Cytotec] 200 mcg PO Q6H #12 tablet 10/06/16 [Rx] oxyCODONE HCl/Acetaminophen [Percocet 5-325 mg Tablet] 1 each PO Q6H #20 tablet 10/06/16 [Rx] Past Medical History Cardiovascular History: Reports: None Respiratory History: Reports: None Genitourinary History: Reports: UTI, Recurrent [employer] History: Reports: , Spontaneous , Other (See Below) : 4 Para: 2 (2011) 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 No Lesions. 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 Has not been cleared. pt cannot recall which knee. - Past Surgical History HEENT Surgical History: Reports: Oral Surgery Social & Family History - Family History Cardiac: Reports: Hypertension, Other (See Below) Endocrine/Metabolic: Reports: Diabetes, type II, Hypothyroidism Oncologic: Reports: Breast - Tobacco Use Smoking Status *Q: Former Smoker Used Tobacco, but Quit: Yes Month Tobacco Last Used: 2014 Second Hand Smoke Exposure: No - Caffeine Use Caffeine Use: Reports: Soda - Alcohol Use Days Per Week of Alcohol Use: 0 - Recreational Drug Use Recreational Drug Use: No H&P Review of Systems - Review of Systems: Review Of Systems: See Below General: Reports: No Symptoms HEENT: Reports: No Symptoms Pulmonary: Reports: No Symptoms Cardiovascular: Reports: No Symptoms Gastrointestinal: Reports: No Symptoms Genitourinary: Reports: No Symptoms Musculoskeletal: Reports: No Symptoms Skin: Reports: No Symptoms Psychiatric: Reports: No Symptoms Neurological: Reports: No Symptoms Hematologic/Lymphatic: Reports: No Symptoms Immunologic: Reports: No Symptoms L&D Exam - Exam Exam: See Below - Vital Signs Weight: 174 lb 9 oz - OB Specific Fundal Height In cm: 0 Heart Tones per Min: 0 - Exam General: Alert, Oriented HEENT: Conjunctiva Clear, Mucosa Moist & [place], PERRLA Neck: Supple, Trachea Midline Lungs: Clear to Auscultation, Normal Respiratory Effort Cardiovascular: Regular Rate, Regular Rhythm GI/Abdominal Exam: Normal Bowel Sounds, Soft, Non-Tender, No Organomegaly, No Distention, No Abnormal Bruit, No Mass, Pelvis Stable Genitourinary: Normal external exam, Normal bimanual exam, Normal speculum exam Extremities: Normal Inspection, Normal Range of Motion, Non-Tender, No Pedal Edema, Normal Capillary Refill Skin: Warm, Dry, Intact Neurological: Reflexes Equal Bilateral Psychiatric: Alert, Normal Affect, Normal Mood - Patient Data Lab Results Last 24 hrs: Laboratory Results - last 24 hr 02/17/17 Range/Units 11:34 HCG, Quant 4778.0 mIU/mL - Problem List (1) 13 weeks gestation of SNOMED Code(s): 37962708 ICD Code: Z3A.13 - 13 WEEKS GESTATION OF Status: Acute Current Visit: No (2) Missed with demise before 20 completed weeks of gestation SNOMED Code(s): 06810565 ICD Code: O02.1 - MISSED Status: Acute Current Visit: No Problem List Initiated/Reviewed/Updated: No Orders Last 24hrs: Active Orders 24 hr Category Date Time Status Patient Status [ADT] Routine ADT 02/17/17 10:35 Active Activity as Tolerated [RC] PFP Care 02/17/17 10:34 Active Communication Order [RC] ASDIRECTED Care 02/17/17 10:34 Active Notify Provider [RC] PFP Care 02/17/17 10:34 Active Notify Provider [RC] PRN Care 02/17/17 10:34 Active Peripheral IV Care [RC] . DIRECTED Care 02/17/17 10:34 Active Verify Patient Consent Obtain [RC] ASDIRECTED Care 02/17/17 10:54 Active Vital Signs [RC] PER UNIT ROUTINE Care 02/17/17 10:34 Active Regular Diet [DIET] Diet 02/17/17 Lunch Active CULTURE MRSA SURVEY [RM] Routine Lab 02/17/17 11:05 Received TYPE AND SCREEN [BBK] Stat Lab 02/17/17 11:25 Received Acetaminophen [Tylenol] Med 02/17/17 10:52 Active 650 mg PO Q4H PRN Lactated Ringers [Ringers, Lactated] 1,000 ml Med 02/17/17 10:45 Active IV ASDIRECTED Nalbuphine [Nubain] Med 02/17/17 10:34 Active 10 mg IVPUSH Q2H PRN Ondansetron [Zofran] Med 02/17/17 10:49 Active 4 mg IVPUSH Q4H PRN Oxytocin [Pitocin] 10 unit Med 02/17/17 11:00 Active Lactated Ringers [Ringers, Lactated] 1,000 ml IV TITRATE Sodium Chloride 0.9% [Saline Flush] Med 02/17/17 10:34 Active 10 ml FLUSH ASDIRECTED PRN Peripheral IV Insertion Adult [OM.PC] Routine Oth 02/17/17 10:34 Ordered Resuscitation Status Routine Resus Stat 02/17/17 10:34 Ordered Medication Orders Acetaminophen (Tylenol) 650 mg PO Q4H PRN PRN Reason: Temperature Lactated Ringer's (Ringers, Lactated) 1,000 mls @ 125 mls/hr IV ASDIRECTED KAYLEIGH Last Admin: 02/17/17 11:30 Dose: 125 mls/hr Oxytocin 10 unit/ Lactated (Ringer's) 1,001 mls @ 12.01 mls/hr IV TITRATE KAYLEIGH; 2 MUNITS/MIN PRN Reason: Protocol Last Titration: 02/17/17 12:47 Dose: 4 munits/min, 24.02 mls/hr Admin: 02/17/17 11:45 Dose: 2 munits/min, 12.01 mls/hr Nalbuphine HCl (Nubain) 10 mg IVPUSH Q2H PRN PRN Reason: Pain (moderate 4-6) Ondansetron HCl (Zofran) 4 mg IVPUSH Q4H PRN PRN Reason: nausea vomiting Sodium Chloride (Saline Flush) 10 ml FLUSH ASDIRECTED PRN PRN Reason: Keep Vein Open Assessment/Plan Comment:: Plan induction of missed .
[2017-02-17] MEDS: Nalbuphine 20 MG/1 ML Amp IVPUSH PRN ×2 (14:19→16:51)
--- NOTE | 2017-02-17 16:32 | US ---
First trimester obstetrical ultrasound: Multiple real-time images were obtained transvaginally. No intrauterine gestational sac is seen. Endometrium is distended by blood clot and debris. Ovaries are not seen. Adnexa appear unremarkable. Impression: 1. Distended endometrial cavity compatible with blood clot as well as probable retained products of conception. Endometrial thickness is about 2.6 cm. Diagnostic code #3
--- NOTE | 2017-02-17 17:25 | PCM.OPNOTE ---
- General Post-Op/Procedure Note Date of Surgery/Procedure: 02/17/17 Operative Procedure(s): Incomplete completed surgically. [id number] Pre Op Diagnosis: Missed . Incomplete after passage of fetus without passage of placenta. Post-Op Diagnosis: Same Anesthesia Technique: Moderate Sedation (Nubain intravenously in labor and delivery.) Primary Surgeon: Avery Horton EBL in mLs: 100 Drain/Tube Comments:: None Complications: None Condition: Good Free Text/Narrative:: Intake & Output 02/17/17 02/17/17 02/17/17 06:59 14:59 22:59 Intake Total 240 Balance 240 In labor room #4 labor and delivery Patient was placed in the dorsal lithotomy position, given Nubain during the procedure for pain relief. Ring forceps and 4 x 4's utilized to carefully extract the major portion of the placenta, and placing open 4 x 4 on the end of ring forceps and rotating gently clockwise 9 4 x 4's the miscarriage was completed surgically. Patient had estimated blood loss of 100 mL the sponge count before and after the procedure were correct at 10. Instruments times to count correct before and after procedure. Timeout was performed just prior to the procedure. Estimated blood loss during the procedure 100 mL as noted above but prior to the procedure 300 mL of blood loss estimated after delivery of the fetus and afford completion of the (miscarriage). Patient will be kept in room overnight, nothing by mouth after midnight. Non-OB transvaginal ultrasound will be repeated in a.m. Continue Cytotec 200 g by mouth every 6 hours beginning at 1800 hrs. tonight. Blood type O-positive. MRSA negative
[2017-02-17] MEDS: Misoprostol 200 MCG Tab PO SCH (17:58)
[2017-02-17] MEDS: ceFAZolin 2 GM in Premix Bag 1 BAG IV SCH (17:59)
[2017-02-17] MEDS: Acetaminophen/oxyCODONE 325-5 MG Tab PO PRN (18:08)
[2017-02-17] MEDS ORDERED: hydrOXYzine HCl 25 MG/ML SDV IM PRN (20:34)
[2017-02-17] MEDS ORDERED: Morphine 10 MG/ML Syringe IM PRN (20:36)
[2017-02-18] MEDS: ceFAZolin 2 GM in Premix Bag 1 BAG IV SCH ×3 (00:30→13:50)
[2017-02-18] MEDS: Misoprostol 200 MCG Tab PO SCH ×3 (00:31→11:40)
[2017-02-18] MEDS: Acetaminophen/oxyCODONE 325-5 MG Tab PO PRN ×2 (00:32→12:00)
[2017-02-18 08:01] VITALS: BP 114/62
--- NOTE | 2017-02-18 10:59 | US ---
First trimester obstetrical ultrasound: Multiple real-time images were obtained transvaginally. Comparison: Previous study of 02/17/17 is available. Findings: Heterogeneous material remains within the endometrial cavity. Endometrial thickness is approximately 2.0 cm. Ovaries appear within normal limits. No free fluid is seen. Impression: 1. Continuing heterogeneous material within the endometrial cavity. Thickness on current study is about 2.0 cm and previously about 2.6 cm. Diagnostic code #3
--- NOTE | 2017-02-18 11:46 | PCM.DCSUM1 ---
Discharge Summary - Hospital Course Free Text/Narrative:: [facility] Post-Op/Procedure Note Patient Name: LALO GARCIA Date of : 89 Patient Status: Observation Attending Provider: Avery Horton Date: 02/17/17 17:19 Initialization Date: 02/17/17 17:19 - General Post-Op/Procedure Note Date of Surgery/Procedure: 02/17/17 Operative Procedure(s): Incomplete completed surgically. [id number] Pre Op Diagnosis: Missed . Incomplete after passage of fetus without passage of placenta. Post-Op Diagnosis: Same Anesthesia Technique: Moderate Sedation (Nubain intravenously in labor and delivery.) Primary Surgeon: Avery Horton EBL in mLs: 100 Drain/Tube Comments:: None Complications: None Condition: Good Free Text/Narrative:: Intake & Output 02/17/17 02/17/17 02/17/17 06:59 14:59 22:59 Intake Total 240 Balance 240 In labor room #4 labor and delivery Patient was placed in the dorsal lithotomy position, given Nubain during the procedure for pain relief. Ring forceps and 4 x 4's utilized to carefully extract the major portion of the placenta, and placing open 4 x 4 on the end of ring forceps and rotating gently clockwise 9 4 x 4's the miscarriage was completed surgically. Patient had estimated blood loss of 100 mL the sponge count before and after the procedure were correct at 10. Instruments times to count correct before and after procedure. Timeout was performed just prior to the procedure. Estimated blood loss during the procedure 100 mL as noted above but prior to the procedure 300 mL of blood loss estimated after delivery of the fetus and afford completion of the (miscarriage). Patient will be kept in room overnight, nothing by mouth after midnight. Non-OB transvaginal ultrasound will be repeated in a.m. Continue Cytotec 200 g by mouth every 6 hours beginning at 1800 hrs. tonight. Blood type O-positive. MRSA negative HPI Initial Comments: [facility] Post-Op/Procedure Note Patient Name: LALO GARCIA Date of : 89 Patient Status: Observation Attending Provider: Avery Horton Date: 02/17/17 17:19 Initialization Date: 02/17/17 17:19 - General Post-Op/Procedure Note Date of Surgery/Procedure: 02/17/17 Operative Procedure(s): Incomplete completed surgically. [id number] Pre Op Diagnosis: Missed . Incomplete after passage of fetus without passage of placenta. Post-Op Diagnosis: Same Anesthesia Technique: Moderate Sedation (Nubain intravenously in labor and delivery.) Primary Surgeon: Avery Horton EBL in mLs: 100 Drain/Tube Comments:: None Complications: None Condition: Good Free Text/Narrative:: Intake & Output 02/17/17 02/17/17 02/17/17 06:59 14:59 22:59 Intake Total 240 Balance 240 In labor room #4 labor and delivery Patient was placed in the dorsal lithotomy position, given Nubain during the procedure for pain relief. Ring forceps and 4 x 4's utilized to carefully extract the major portion of the placenta, and placing open 4 x 4 on the end of ring forceps and rotating gently clockwise 9 4 x 4's the miscarriage was completed surgically. Patient had estimated blood loss of 100 mL the sponge count before and after the procedure were correct at 10. Instruments times to count correct before and after procedure. Timeout was performed just prior to the procedure. Estimated blood loss during the procedure 100 mL as noted above but prior to the procedure 300 mL of blood loss estimated after delivery of the fetus and afford completion of the (miscarriage). Patient will be kept in room overnight, nothing by mouth after midnight. Non-OB transvaginal ultrasound will be repeated in a.m. Continue Cytotec 200 g by mouth every 6 hours beginning at 1800 hrs. tonight. Blood type O-positive. MRSA negative Brief History: [facility] . Post-Op/Procedure Note. Patient Name: LALO GARCIAMedical Record Number: [id number]. Date of : [birth year]Patient Status: Observation. Attending Provider: Avery Hortonccount Number: [id number]. Date: 02/17/17 17:19Initialization Date: 02/17/17 17:19. - General Post-Op/Procedure Note. Date of Surgery/Procedure: 02/17/17. Operative Procedure(s): Incomplete completed surgically. [id number]. Pre Op Diagnosis: Missed . Incomplete after passage of fetus without passage of placenta. Post-Op Diagnosis: Same. Anesthesia Technique: Moderate Sedation (Nubain intravenously in labor and delivery.). Primary Surgeon: Avery Horton. EBL in mLs: 100. Drain/Tube Comments:: None. Complications: None. Condition: Good. Free Text/Narrative:: Intake & Output. 02/17/1711. [id number]. Intake [id number]. [id number]. In labor room #4 labor and delivery. Patient was placed in the dorsal lithotomy position, given Nubain during the procedure for pain relief. Ring forceps and 4 x 4's utilized to carefully extract the major portion of the placenta, and placing open 4 x 4 on the end of ring forceps and rotating gently clockwise 9 4 x 4's the miscarriage was completed surgically. Patient had estimated blood loss of 100 mL the sponge count before and after the procedure were correct at 10. Instruments times to count correct before and after procedure. Timeout was performed just prior to the procedure. Estimated blood loss during the procedure 100 mL as noted above but prior to the procedure 300 mL of blood loss estimated after delivery of the fetus and afford completion of the (miscarriage). Patient will be kept in room overnight, nothing by mouth after midnight. Non-OB transvaginal ultrasound will be repeated in a.m. Continue Cytotec 200 g by mouth every 6 hours beginning at 1800 hrs. tonight. Blood type O-positive. MRSA negative - Discharge Data Discharge Date: 02/18/17 Discharge Disposition: Home, Self-Care 01 Condition: Good - Discharge Diagnosis/Problem(s) (1) 13 weeks gestation of SNOMED Code(s): 75116516 ICD Code: Z3A.13 - 13 WEEKS GESTATION OF Status: Acute Current Visit: No (2) Missed with demise before 20 completed weeks of gestation SNOMED Code(s): 92177361 ICD Code: O02.1 - MISSED Status: Acute Current Visit: No - Patient Summary/Data Operative Procedure(s) Performed: Incomplete completed surgically. [id number] Complications: None Consults: None Hospital Course: Uneventful - Patient Instructions Diet: Regular Diet as Tolerated Showering/Bathing: May Shower, No Tub Bathing/Swimming Notify Provider of: Fever, Increased Pain, Swelling and Redness, Drainage, Nausea and/or Vomiting - Discharge Plan Prescriptions/Med Rec: Misoprostol [Cytotec] 200 mcg PO Q12H #20 tablet Naproxen 250 mg PO Q12H #50 tablet Home Medications: Home Meds Vit/Iron Fumarate/FA [ Vitamin Tablet] 1 tab PO DAILY 08/24/15 [History] Acetaminophen [Tylenol] 650 mg PO Q4H PRN tablet 02/18/17 [Rx] Misoprostol [Cytotec] 200 mcg PO Q12H #20 tablet 02/18/17 [Rx] Naproxen 250 mg PO Q12H #50 tablet 02/18/17 [Rx] Referrals: Avery Horton MD [Physician] - (2 weeks) - Discharge Summary/Plan Comment DC Time >30 min.: No - Patient Data Vitals - Most Recent: Last Vital Signs Temp 98.6 F 02/18/17 04:00 Pulse 76 02/18/17 04:00 Resp 16 02/18/17 04:00 BP 114/62 02/18/17 04:00 Pulse Ox 100 02/18/17 04:00 Weight - Most Recent: 174 lb 9 oz I&O - Last 24 hours: Intake & Output 02/17/17 02/18/17 02/18/17 22:59 06:59 14:59 Intake Total 1615 1050 Balance 1615 1050 Lab Results - Last 24 hrs: Laboratory Results - last 24 hr 02/17/17 02/17/17 02/17/17 Range/Units 11:05 11:25 11:34 WBC (3.98-10.04) K/mm3 RBC (3.98-5.22) M/mm3 Hgb (11.2-15.7) gm/L Hct (34.1-44.9) % MCV (79.4-94.8) fl MCH (25.6-32.2) pg MCHC (32.2-35.5) g/dl RDW Std Deviation (36.4-46.3) fL Plt Count (182-369) K/mm3 MPV (9.4-12.3) fl Neut % (Auto) (34.0-71.1) % Lymph % (Auto) (19.3-51.7) % Spalding % (Auto) (4.7-12.5) % Eos % (Auto) (0.7-5.8) Baso % (Auto) (0.1-1.2) % Neut # (Auto) (1.56-6.13) K/mm3 Lymph # (Auto) (1.18-3.74) K/mm3 Spalding # (Auto) (0.24-0.36) K/mm3 Eos # (Auto) (0.04-0.36) K/mm3 Baso # (Auto) (0.01-0.08) K/mm3 Manual Slide Review HCG, Quant 4778.0 mIU/mL MRSA (PCR) Negative Blood Type O POSITIVE Gel Antibody Screen Negative 02/18/17 02/18/17 Range/Units 06:56 06:56 WBC 8.32 (3.98-10.04) K/mm3 RBC 3.41 L (3.98-5.22) M/mm3 Hgb 7.5 L (11.2-15.7) gm/L Hct 24.5 L (34.1-44.9) % MCV 71.8 L (79.4-94.8) fl MCH 22.0 L (25.6-32.2) pg MCHC 30.6 L (32.2-35.5) g/dl RDW Std Deviation 48.1 H (36.4-46.3) fL Plt Count 268 (182-369) K/mm3 MPV 11.0 (9.4-12.3) fl Neut % (Auto) 47.5 (34.0-71.1) % Lymph % (Auto) 37.5 (19.3-51.7) % Spalding % (Auto) 7.1 (4.7-12.5) % Eos % (Auto) 6.9 H (0.7-5.8) Baso % (Auto) 0.8 (0.1-1.2) % Neut # (Auto) 3.95 (1.56-6.13) K/mm3 Lymph # (Auto) 3.12 (1.18-3.74) K/mm3 Spalding # (Auto) 0.59 H (0.24-0.36) K/mm3 Eos # (Auto) 0.57 H (0.04-0.36) K/mm3 Baso # (Auto) 0.07 (0.01-0.08) K/mm3 Manual Slide Review Abnormal smear HCG, Quant 1552.0 mIU/mL MRSA (PCR) Blood Type Gel Antibody Screen Med Orders - Current: Current Medications Acetaminophen (Tylenol) 650 mg PO Q4H PRN PRN Reason: Pain (mild 1-3) Hydroxyzine HCl (Vistaril) 25 mg IM Q4H PRN PRN Reason: Pain Last Admin: 02/17/17 21:17 Dose: 25 mg Cefazolin Sodium/Dextrose 2 gm (/ Premix) 50 mls @ 100 mls/hr IV Q6H [facility] Last Admin: 02/18/17 05:17 Dose: 100 mls/hr Oxytocin 20 unit/ Lactated (Ringer's) 1,002 mls @ 125 mls/hr IV SEECOMMENT [facility] Stop: 02/19/17 01:31 Last Admin: 02/18/17 05:12 Dose: 125 mls/hr Misoprostol (Cytotec) 200 mcg PO Q6H [facility] Stop: 02/19/17 00:01 Last Admin: 02/18/17 04:59 Dose: Not Given Morphine Sulfate (Morphine) 5 mg IM Q6H PRN PRN Reason: Pain Last Admin: 02/17/17 21:18 Dose: 5 mg Ondansetron HCl (Zofran) 4 mg IVPUSH Q4H PRN PRN Reason: Nausea/Vomiting Oxycodone/Acetaminophen (Percocet 325-5 Mg) 2 tab PO Q4H PRN PRN Reason: Pain (moderate 4-6) Last Admin: 02/18/17 00:32 Dose: 2 tab Discontinued Medications Acetaminophen (Tylenol) 650 mg PO Q4H PRN PRN Reason: Temperature Lactated Ringer's (Ringers, Lactated) 1,000 mls @ 125 mls/hr IV ASDIRECTED [facility] Last Admin: 02/17/17 11:30 Dose: 125 mls/hr Oxytocin 10 unit/ Lactated (Ringer's) 1,001 mls @ 12.01 mls/hr IV TITRATE KAYLEIGH; 2 MUNITS/MIN PRN Reason: Protocol Last Titration: 02/17/17 14:16 Dose: 5 munits/min, 30.03 mls/hr Misoprostol (Cytotec) 800 mcg VAG ONETIME ONE Stop: 02/17/17 10:48 Last Admin: 02/17/17 11:30 Dose: 800 mcg Nalbuphine HCl (Nubain) 10 mg IVPUSH Q2H PRN PRN Reason: Pain (moderate 4-6) Last Admin: 02/17/17 16:51 Dose: 10 mg Ondansetron HCl (Zofran) 4 mg IVPUSH Q4H PRN PRN Reason: nausea vomiting Oxytocin (Pitocin) Confirm Administered Dose 10 unit .ROUTE .STK-MED ONE Stop: 02/17/17 11:32 Last Admin: 02/17/17 22:44 Dose: Not Given Sodium Chloride (Saline Flush) 10 ml FLUSH ASDIRECTED PRN PRN Reason: Keep Vein Open *Q Meaningful Use (DIS) - VTE *Q VTE Criteria *Q: - Stroke *Q Stroke Criteria *Q: - AMI *Q AMI Criteria *Q:
== END 2017-02-18 12:10 | disposition home or self-care (01) ==
LOC: JD.OBCHECK 10:14 → JD.OB 10:20 → JD.OBCHECK 10:35 → JD.OB 10:35
PROVIDERS: ADMIT Obstetrics & Gynecology; ATTEND Obstetrics & Gynecology
DX: O02.1 Missed abortion (principal); O03.4 Incomplete spontaneous abortion without complication; E11.9 Type 2 diabetes mellitus without complications; E03.9 Hypothyroidism, unspecified; F41.8 Other specified anxiety disorders; Z3A.13 13 weeks gestation of pregnancy; Z79.899 Other long term (current) drug therapy; Z91.030 Bee allergy status; Z87.891 Personal history of nicotine dependence; Z88.6 Allergy status to analgesic agent; Z98.890 Other specified postprocedural states; Z86.14 Personal history of Methicillin resistant Staphylococcus aureus infection
CPT/HCPCS: 36415; 59812; 76817; 84702; 85025; 86850; 86900; 86901; 87641; 96365; 96366; 96368; 96372; 96375; 96376; A9270; G0378; J0690; J2270; J2300; J2590; J3410; J7120; 59409

== ENCOUNTER 2017-08-28 19:17 | Emergency (ER) | payer MEDICAID ==
[2017-08-28 19:37] VITALS: BP 121/80
--- NOTE | 2017-08-28 20:04 | EDM.PDOC ---
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 Minimal cramping. No low back pain. Last trimester. Was July 11. This is a planned . 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 She did require D&C with the miscarriage about a year ago. She is 5 para 2. Previous C-sections. Still has breast tenderness still has morning nausea. Ultrasound was done last week with Dr. Horton's office improved viability. She is concerned of course because of miscarriages twice in the last year. Onset: Today Onset Date: 08/28/17 Duration: Hour(s): Location: Reports: Other (Spotting per vagina. 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 (see below) (None) - Related Data Allergies Allergy/AdvReac Type Severity Reaction Status Date / Time ibuprofen Allergy Other Verified 08/28/17 19:29 venom-honey bee Allergy Other Verified 08/28/17 19:29 [bee venom (honey bee)] Home Meds: Home Meds Vit/Iron Fumarate/FA [ Vitamin Tablet] 1 tab PO DAILY 08/24/15 [History] Past Medical History HEENT History: Reports: None Cardiovascular History: Reports: None Respiratory History: Reports: None Genitourinary History: Reports: UTI, Recurrent 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 Has not been cleared. pt cannot recall which knee. - Past Surgical History HEENT Surgical History: Reports: Oral Surgery Musculoskeletal Surgical History: Reports: None Social & Family History - Family History Family Medical History: Noncontributory Cardiac: Reports: Hypertension, Other (See Below) Endocrine/Metabolic: Reports: Diabetes, type II, Hypothyroidism Oncologic: Reports: Breast - Tobacco Use Smoking Status *Q: Never Smoker Second Hand Smoke Exposure: No - Caffeine Use Caffeine Use: Reports: None - Recreational Drug Use Recreational Drug Use: No - Living Situation & Occupation Living situation: Reports: Single Occupation: Unemployed ED ROS GENERAL - Review of Systems Review Of Systems: See Below Constitutional: Reports: Fatigue. Denies: Fever, Chills, Malaise, Weakness HEENT: Reports: No Symptoms Respiratory: Reports: No Symptoms Cardiovascular: Reports: No Symptoms Endocrine: Reports: Fatigue GI/Abdominal: Reports: No Symptoms : Reports: Other (Spotting per vagina today. Known to be proximal be 7 weeks gestation. Last menstrual period July 11.) Musculoskeletal: Reports: Back Pain Skin: Reports: No Symptoms (Mild low back discomfort.) Neurological: Reports: No Symptoms Psychiatric: Reports: No Symptoms Hematologic/Lymphatic: Reports: No Symptoms Immunologic: Reports: No Symptoms ED EXAM - Physical Exam Exam: See Below Exam Limited By: No Limitations General Appearance: Alert, WD/WN, Anxious Respiratory/Chest: No Respiratory Distress, Lungs Clear, Normal Breath Sounds, Chest Non-Tender Cardiovascular: Normal Peripheral Pulses, Regular Rate, Rhythm, No Edema, No Gallop, No Murmur GI/Abdominal Exam: Normal Bowel Sounds, Soft, Non-Tender, No Organomegaly, No Abnormal Bruit, No Mass, Pelvis Stable (Female) Exam: Normal External Exam, Enlarged Uterus (Clinically 7-8 weeks gestation. Anteverted uterus cervix is quite far), Other (No blood on gloved fingers.). No: Adnexal Mass (L), Adnexal Mass (R), Adnexal Tenderness, Cervical Dilatation, Cervical Discharge, Cervical Fluid (Cervix is closed), Cervix Motion Tenderness Back Exam: Normal Inspection, Full Range of Motion. No: CVA Tenderness (L), CVA Tenderness (R) Extremities: Normal Inspection, Normal Range of Motion, Non-Tender, No Pedal Edema Neurological: Alert, Oriented, CN II-XII Intact, Normal Cognition, Normal Gait Psychiatric: Normal Affect, Normal Mood Skin Exam: Warm, Dry, Intact, Normal Color, No Rash Course - Vital Signs Last Recorded V/S: Last Vital Signs Temp 36.8 C 08/28/17 19:29 Pulse 89 08/28/17 19:29 Resp 16 08/28/17 19:29 BP 121/80 08/28/17 19:29 Pulse Ox 100 08/28/17 19:29 - Orders/Labs/Meds Orders: Active Orders 24 hr Category Date Time Status OB Transvaginal [US] Stat Exams 08/28/17 19:54 Taken Labs: Laboratory Tests 08/28/17 08/28/17 08/28/17 Range/Units 20:10 20:10 20:10 WBC 9.18 (3.98-10.04) K/mm3 RBC 4.66 (3.98-5.22) M/mm3 Hgb 12.9 (11.2-15.7) gm/L Hct 38.7 (34.1-44.9) % MCV 83.0 (79.4-94.8) fl MCH 27.7 (25.6-32.2) pg MCHC 33.3 (32.2-35.5) g/dl RDW Std Deviation 47.5 H (36.4-46.3) fL Plt Count 290 (182-369) K/mm3 MPV 10.3 (9.4-12.3) fl Neutrophils % (Manual) 60 (40-60) % Band Neutrophils % 0 (0-10) % Lymphocytes % (Manual) 34 (20-40) % Atypical Lymphs % 0 % Monocytes % (Manual) 2 (2-10) % Eosinophils % (Manual) 3 (0.7-5.8) % Basophils % (Manual) 1 (0.1-1.2) Platelet Estimate Adequate Plt Morphology Comment Normal RBC Morph Comment Normal Sodium 139 (136-145) mEq/L Potassium 3.7 (3.5-5.1) mEq/L Chloride 104 (98-107) mEq/L Carbon Dioxide 24 (21-32) mEq/L Anion Gap 14.7 (5-15) BUN 10 (7-18) mg/dL Creatinine 0.7 (0.55-1.02) mg/dL Est Cr Clr Drug Dosing 140.54 mL/min Estimated GFR (MDRD) > 60 (>60) mL/min BUN/Creatinine Ratio 14.3 (14-18) Glucose 92 (74-106) mg/dL Calcium 8.8 (8.5-10.1) mg/dL Total Bilirubin 0.4 (0.2-1.0) mg/dL AST 17 (15-37) U/L ALT 17 (14-59) U/L Alkaline Phosphatase 66 (46-116) U/L Total Protein 7.3 (6.4-8.2) g/dl Albumin 3.6 (3.4-5.0) g/dl Globulin 3.7 gm/dL Albumin/Globulin Ratio 1.0 (1-2) HCG, Quant mIU/mL Blood Type O POSITIVE Gel Antibody Screen Negative 08/28/17 Range/Units 20:10 WBC (3.98-10.04) K/mm3 RBC (3.98-5.22) M/mm3 Hgb (11.2-15.7) gm/L Hct (34.1-44.9) % MCV (79.4-94.8) fl MCH (25.6-32.2) pg MCHC (32.2-35.5) g/dl RDW Std Deviation (36.4-46.3) fL Plt Count (182-369) K/mm3 MPV (9.4-12.3) fl Neutrophils % (Manual) (40-60) % Band Neutrophils % (0-10) % Lymphocytes % (Manual) (20-40) % Atypical Lymphs % % Monocytes % (Manual) (2-10) % Eosinophils % (Manual) (0.7-5.8) % Basophils % (Manual) (0.1-1.2) Platelet Estimate Plt Morphology Comment RBC Morph Comment Sodium (136-145) mEq/L Potassium (3.5-5.1) mEq/L Chloride (98-107) mEq/L Carbon Dioxide (21-32) mEq/L Anion Gap (5-15) BUN (7-18) mg/dL Creatinine (0.55-1.02) mg/dL Est Cr Clr Drug Dosing mL/min Estimated GFR (MDRD) (>60) mL/min BUN/Creatinine Ratio (14-18) Glucose (74-106) mg/dL Calcium (8.5-10.1) mg/dL Total Bilirubin (0.2-1.0) mg/dL AST (15-37) U/L ALT (14-59) U/L Alkaline Phosphatase (46-116) U/L Total Protein (6.4-8.2) g/dl Albumin (3.4-5.0) g/dl Globulin gm/dL Albumin/Globulin Ratio (1-2) HCG, Quant 51610.0 mIU/mL Blood Type Gel Antibody Screen - Re-Assessments/Exams Free Text/Narrative Re-Assessment/Exam: 08/28/17 20:05 26-year-old female presents to the ED for evaluation of spotting per vagina that started today. Spotting is a light pinkish discharge. Associated mild menstrual cramping like pain. She is 5 para 2 with 2 previous miscarriages in the last year. Cervix is closed it does feel 7-8 weeks gestation. No blood noted on gloved fingers. Plan routine labs including quantitative beta-hCG transvaginal ultrasound to prove viability. 08/28/17 21:24 Labs reveal a normal white count at 9.18. Differential shows 60% neutrophils no bands. Hemoglobin is 12.9. Hematocrit is 38.7. Platelet count normal 290,000. Sodium 139 with a potassium 3.7. Chloride 104 the bicarbonate 24. And a gap is 14.7 with BUN of 10. Creatinine is 0.7. Glucose is 92. Calcium is 8.8. Total bilirubin 0.4. Liver function normal. 08/28/17 21:37 ultrasound confirms viability with a heart rate that is slightly low at 1 32/m. Livingston Wheeler-rump length correlates with 6 week 6 day . Patient was notified and she will be discharged to home. Rotated beta -hCG is not yet available. 08/28/17 23;00 Qualntitative Beta-hCG returned at 64,860. Blood type is O+. Departure - Departure Time of Disposition: 21:41 Disposition: Home, Self-Care 01 Condition: Fair Clinical Impression: Spotting complicating , first trimester - Discharge Information Instructions: Vaginal Bleeding During , First Trimester Referrals: Avery Horton MD [Primary Care Provider] - Forms: ED Department Discharge Additional Instructions: Evaluation the emergency room today in regards to pink discharge per vagina today. Perhaps mild lower abdominal cramping pain as well. No to be . Last ultrasound was a week ago. Confirm viability. Ultrasound done today also confirms viability at 6 weeks 6 days with an active heartbeat of 132. No other maladies were appreciated in the gestational sac that would be worrisome. At this time treatment is conservative resting a bit more than normal without any heavy lifting pushing or pulling for the next 3-4 days. Since her to the point where your bleeding heavily or soaking a pad per hour for 2 consecutive hours she would need to return to OB or ER care. Follow-up with Dr. Horton otherwise as planned - My Orders Last 24 Hours: My Active Orders 08/28/17 19:54 OB Transvaginal [US] Stat - Assessment/Plan Last 24 Hours: My Active Orders 08/28/17 19:54 OB Transvaginal [US] Stat
--- NOTE | 2017-08-29 11:59 | US ---
First trimester obstetrical ultrasound: Multiple real-time images were obtained transvaginally. Comparison: Previous first trimester obstetrical ultrasound of 08/25/17. Dates: LMP: LMP given as 07/11/17, MARINA 04/17/18, gestational age 6 weeks 6 days Current ultrasound: MARINA 04/18/18, gestational age 6 weeks 5 days Earliest ultrasound (08/26/15): MARINA 04/17/18, gestational age 7 weeks 0 days Single intrauterine gestation is seen. Small embryo and yolk sac are noted. Amniotic fluid volume is normal. No subchorionic hemorrhage is identified. Maternal ovaries are within normal limits. Measurements: Athalia-rump length: 0.78 cm - 6 weeks 5 days Heart rate: 132 bpm Impression: 1. Single intrauterine gestation. Dates as noted above. 2. No complicating process is seen by ultrasound at this time. Diagnostic code #1 I agree with preliminary report from [facility], finalized at 08/28/17, 10:56 PM Central Time
== END 2017-08-28 21:53 | disposition home or self-care (01) ==
LOC: JD.ED 19:17
DX: O26.851 Spotting complicating pregnancy, first trimester (principal); Z88.6 Allergy status to analgesic agent; Z91.030 Bee allergy status; Z3A.01 Less than 8 weeks gestation of pregnancy
CPT/HCPCS: 36415; 76817; 76817-26; 80053; 84702; 85007; 85027; 86850; 86900; 86901; 99283; 99284-25

== ENCOUNTER 2018-04-10 06:59 | Inpatient (IN) | payer BC ==
[2018-04-10] MEDS ORDERED: Sodium Chloride 0.9% 10 ML Syringe FLUSH PRN (07:59)
[2018-04-10] MEDS ORDERED: Nalbuphine 20 MG/ML 1 ML Syringe IVPUSH PRN (07:59)
[2018-04-10] MEDS ORDERED: Ondansetron 4 MG/2 ML SDV IVPUSH PRN ×2 (07:59→09:15)
[2018-04-10] MEDS ORDERED: Misoprostol 25 MCG (1/4 of 100 MCG) Tab ONE (08:00)
[2018-04-10] MEDS ORDERED: Oxytocin/Lactated Ringers 10 UNIT/1,000 ML BAG IV SCH ×2 (08:00→15:30)
[2018-04-10] MEDS ORDERED: Misoprostol 25 MCG (1/4 of 100 MCG) Tab VAG ONE (08:09)
--- NOTE | 2018-04-10 08:18 | PCM.LDHP ---
L&D History of Present Illness - General Date of Service: 04/10/18 Admit Problem/Dx: Patient Status Order with Admit Dx/Problem 04/10/18 07:59 Patient Status [ADT] Routine Admission Diagnosis/Problem Admission Diagnosis/Problem Source of Information: Patient History Limitations: Reports: No Limitations - History of Present Illness Introduction:: 27-year-old 0-2 MARINA 04/17/18 at estimated gestational age of 39 weeks 0 days presented to labor and delivery for induction of labor. Group B strep is negative. 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 No outbreaks since. No outbreak on examination today.. Blood type O-positive antibody screen negative hemoglobin hematocrit on 3.6 and 39.6 platelets 311,000. Rubella immune RPR nonreactive hepatitis B surface antigen and HIV were negative On 01/12/18 hemoglobin hematocrit 11.6/35.8 platelets 330,000 diabetes screen 1 hour OB glucose 117 serology nonreactive. On 03/19/18 group B strep negative. Plan Cytotec 25 g placed at 8:03 AM this morning cervix was 2 cm dilated, 20% effaced, soft, posterior, vertex presentation -3. Improves with: Reports: None Worsens with: Reports: None Associated Symptoms: Reports: N - Related Data Allergies/Adverse Reactions: Allergies Allergy/AdvReac Type Severity Reaction Status Date / Time ibuprofen Allergy Abdominal Verified 04/10/18 07:59 Pain venom-honey bee Allergy Anaphylactic Verified 04/10/18 07:59 [bee venom (honey bee)] Shock Home Medications: Home Meds Vit/Iron Fumarate/FA [ Vitamin Tablet] 1 tab PO DAILY 08/24/15 [History] Past Medical History HEENT History: Reports: None Cardiovascular History: Reports: None Respiratory History: Reports: None Genitourinary History: Reports: UTI, 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 PICKER History: Reports: , Spontaneous , Other (See Below) Other OB/BYN History: HPV Musculoskeletal History: Reports: Other (See Below) Other Musculoskeletal History: right elbow and right "pinky" toe fracture Psychiatric History: Reports: Anxiety, Depression Hematologic History: Reports: Anemia Immunologic History: Reports: None (H/O HSV positive in past, no lesions on vulva or vagina today.) Oncologic (Cancer) History: Reports: Other (See Below) Other Oncologic History: HPV Dermatologic History: Reports: Eczema - Infectious Disease History Infectious Disease History: Reports: MRSA Other Infectious Disease History: 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 Has not been cleared. pt cannot recall which knee. - Past Surgical History HEENT Surgical History: Reports: Oral Surgery Musculoskeletal Surgical History: Reports: None Social & Family History - Family History Family Medical History: Noncontributory Cardiac: Reports: Hypertension, Other (See Below) Endocrine/Metabolic: Reports: Diabetes, type II, Hypothyroidism Oncologic: Reports: Breast - Caffeine Use Caffeine Use: Reports: None - Living Situation & Occupation Living situation: Reports: Single Occupation: Unemployed H&P Review of Systems - Review of Systems: Review Of Systems: See Below General: Reports: No Symptoms HEENT: Reports: No Symptoms Pulmonary: Reports: No Symptoms Cardiovascular: Reports: No Symptoms Gastrointestinal: Reports: No Symptoms Genitourinary: Reports: No Symptoms Musculoskeletal: Reports: No Symptoms Skin: Reports: No Symptoms Psychiatric: Reports: No Symptoms Neurological: Reports: No Symptoms Hematologic/Lymphatic: Reports: No Symptoms Immunologic: Reports: No Symptoms L&D Exam - Exam Exam: See Below - Vital Signs Weight: 214 lb - OB Specific Fundal Height In cm: 39 Contraction Intensity: Mild Movement: Active Heart Tones: Present Heart Tones per Min: 135 Heart Rate (FHR) Variability: Moderate (6-25 bmp) Presentation: Vertex - Calderon Score Calderon Score Cervix Position: Posterior Calderon Score Consistency: Soft Calderon Score Effacement: 0-30% Calderon Score Dilation: 1-2 cm Calderon Score 's Station: -3 Calderon Score Total: 3 - Exam General: Alert, Oriented HEENT: Conjunctiva Clear, Mucosa Moist & [place] Neck: Supple, Trachea Midline Lungs: Clear to Auscultation, Normal Respiratory Effort Cardiovascular: Regular Rate, Regular Rhythm GI/Abdominal Exam: Normal Bowel Sounds, Soft, Non-Tender Genitourinary: Normal external exam Skin: Warm, Dry, Intact Psychiatric: Alert, Normal Affect, Normal Mood - Problem List (1) 39 weeks gestation of SNOMED Code(s): 57668304 ICD Code: Z3A.39 - 39 WEEKS GESTATION OF Status: Acute Current Visit: No Problem List Initiated/Reviewed/Updated: No Orders Last 24hrs: Active Orders 24 hr Category Date Time Status Patient Status [ADT] Routine ADT 04/10/18 07:59 Ordered Activity as Tolerated [RC] PFP Care 04/10/18 07:59 Ordered Communication Order [RC] ASDIRECTED Care 04/10/18 07:59 Ordered Notify Provider [RC] PFP Care 04/10/18 07:59 Ordered Notify Provider [RC] PRN Care 04/10/18 07:59 Ordered Peripheral IV Care [RC] . DIRECTED Care 04/10/18 08:07 Ordered Pump Management, Intrathecal [RC] ASDIRECTED Care 04/10/18 08:09 Ordered Vital Signs [RC] PER UNIT ROUTINE Care 04/10/18 07:59 Ordered Assessment/Plan Comment:: And induction of labor and delivery.
--- NOTE | 2018-04-10 09:14 | PCM.PREANE ---
Preanesthetic Assessment - Procedure Proposed Procedure: DANDY - Anesthesia/Transfusion/Family Hx Anesthesia History: Prior Anesthesia Without Reaction Family History of Anesthesia Reaction: No Transfusion History: No Prior Transfusion(s) Type of Transfusion Reactions: Reports: Unknown - Review of Systems General: No Symptoms Pulmonary: No Symptoms Cardiovascular: No Symptoms Gastrointestinal: No Symptoms Neurological: No Symptoms Other: Reports: None - Physical Assessment NPO Status Date: 04/10/18 NPO Status Time: 07:00 Respiratory Rate: 18 Vital Signs: Last Vital Signs Temp 36.5 C 04/10/18 07:59 Pulse 86 04/10/18 07:59 Resp 18 04/10/18 07:59 BP 136/86 04/10/18 07:59 Pulse Ox Height: 1.83 m Weight: 97.069 kg ASA Class: 2 Mental Status: Alert & Oriented x3 Airway Class: Mallampati = 1 Dentition: Reports: Normal Dentition Thyro-Mental Finger Breadths: 3 Mouth Opening Finger Breadths: 3 ROM/Head Extension: Full Lungs: Clear to Auscultation, Normal Respiratory Effort Cardiovascular: Regular Rate, Regular Rhythm - Lab Values: Laboratory Last Values WBC 7.82 K/mm3 (3.98-10.04) 04/10/18 08:21 RBC 4.31 M/mm3 (3.98-5.22) 04/10/18 08:21 Hgb 10.5 gm/L (11.2-15.7) L 04/10/18 08:21 Hct 33.3 % (34.1-44.9) L 04/10/18 08:21 MCV 77.3 fl (79.4-94.8) L 04/10/18 08:21 MCH 24.4 pg (25.6-32.2) L 04/10/18 08:21 MCHC 31.5 g/dl (32.2-35.5) L 04/10/18 08:21 RDW Std Deviation 40.7 fL (36.4-46.3) 04/10/18 08:21 Plt Count 330 K/mm3 (182-369) 04/10/18 08:21 MPV 9.9 fl (9.4-12.3) 04/10/18 08:21 Neut % (Auto) 61.6 % (34.0-71.1) 04/10/18 08:21 Lymph % (Auto) 26.9 % (19.3-51.7) 04/10/18 08:21 [place] % (Auto) 9.3 % (4.7-12.5) 04/10/18 08:21 Eos % (Auto) 1.3 (0.7-5.8) 04/10/18 08:21 Baso % (Auto) 0.4 % (0.1-1.2) 04/10/18 08:21 Neut # (Auto) 4.82 K/mm3 (1.56-6.13) 04/10/18 08:21 Lymph # (Auto) 2.10 K/mm3 (1.18-3.74) 04/10/18 08:21 [place] # (Auto) 0.73 K/mm3 (0.24-0.36) H 04/10/18 08:21 Eos # (Auto) 0.10 K/mm3 (0.04-0.36) 04/10/18 08:21 Baso # (Auto) 0.03 K/mm3 (0.01-0.08) 04/10/18 08:21 - Allergies Allergies/Adverse Reactions: Allergies Allergy/AdvReac Type Severity Reaction Status Date / Time ibuprofen Allergy Abdominal Verified 04/10/18 07:59 Pain venom-honey bee Allergy Anaphylactic Verified 04/10/18 07:59 [bee venom (honey bee)] Shock - Blood Blood Available: No Product(s) Available: None - Anesthesia Plan Pre-Op Medication Ordered: None - Acknowledgements Anesthesia Type Planned: Epidural Pt an Appropriate Candidate for the Planned Anesthesia: Yes Alternatives and Risks of Anesthesia Discussed w Pt/Guardian: Yes Pt/Guardian Understands and Agrees with Anesthesia Plan: Yes PreAnesthesia Questionnaire HEENT History: Reports: None Cardiovascular History: Reports: None Respiratory History: Reports: None Genitourinary History: Reports: UTI, Recurrent DIRECTOR OF CARDIAC CATH LAB History: Reports: , Spontaneous , Other (See Below) Other OB/BYN History: HPV Musculoskeletal History: Reports: Other (See Below) Other Musculoskeletal History: right elbow and right "pinky" toe fracture Psychiatric History: Reports: Anxiety, Depression Hematologic History: Reports: Anemia Immunologic History: Reports: None (H/O HSV positive in past, no lesions on vulva or vagina today.) Oncologic (Cancer) History: Reports: Other (See Below) Other Oncologic History: HPV Dermatologic History: Reports: Eczema - Infectious Disease History Infectious Disease History: Reports: MRSA Other Infectious Disease History: 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 Has not been cleared. pt cannot recall which knee. - Past Surgical History HEENT Surgical History: Reports: Oral Surgery Musculoskeletal Surgical History: Reports: None - SUBSTANCE USE Smoking Status *Q: Never Smoker Second Hand Smoke Exposure: No Recreational Drug Use History: No - HOME MEDS Home Medications: Home Meds Vit/Iron Fumarate/FA [ Vitamin Tablet] 1 tab PO DAILY 08/24/15 [History] - CURRENT (IN HOUSE) MEDS Current Meds: Current Medications Lactated Ringer's (Ringers, Lactated) 1,000 mls @ 100 mls/hr IV ASDIRECTED KAYLEIGH Oxytocin/Lactated Ringer's (Pitocin In Lr 10 Units/1,000 Ml) 10 unit in 1,000 mls @ 500 mls/hr IV .CONTINUOUS KAYLEIGH Misoprostol (Cytotec) 50 mcg VAG .ONETIME KAYLEIGH Nalbuphine HCl (Nubain) 10 mg IVPUSH Q2H PRN PRN Reason: pain Ondansetron HCl (Zofran) 4 mg IVPUSH Q4H PRN PRN Reason: Nausea/Vomiting Sodium Chloride (Saline Flush) 10 ml FLUSH ASDIRECTED PRN PRN Reason: Keep Vein Open Discontinued Medications Misoprostol (Cytotec) Confirm Administered Dose 25 mcg .ROUTE .STK-MED ONE Stop: 04/10/18 08:01 Misoprostol (Cytotec) 25 mcg VAG ONETIME ONE Stop: 04/10/18 08:10
[2018-04-10] MEDS ORDERED: ePHEDrine 50 MG/ML SDV IVPUSH PRN (09:15)
[2018-04-10] MEDS ORDERED: fentaNYL 100 MCG/2 ML SDV EPIDUR PRN (09:15)
[2018-04-10] MEDS ORDERED: diphenhydrAMINE 50 MG/ML SDV IVPUSH PRN (09:15)
[2018-04-10] MEDS ORDERED: fentaNYL/Bupivacaine-NS 2 MCG/ML-0.125%/PF 100 ML Bag EP SCH (09:15)
[2018-04-10] MEDS ORDERED: Misoprostol 25 MCG (1/4 of 100 MCG) Tab VAG SCH (11:00)
[2018-04-10] MEDS: Lactated Ringers 1,000 ML IV SCH ×2 (11:03→13:29)
--- NOTE | 2018-04-10 13:03 | PCM.SN ---
- Free Text/Narrative Note: Cervix 4 cm, 50%, soft, posterior, vertex -1 Cat I FHR. Patient will have epidural placed then re-examine after that.
--- NOTE | 2018-04-10 14:09 | PCM.SN ---
- Free Text/Narrative Note: Cervix 5 cm, 50%, soft, mid-position, vertex -1/0. Amniotomy 1405 approximately with clear fluid. Cat I FHR
--- NOTE | 2018-04-10 18:44 | PCM.DEL ---
L & D Note - General Info Date of Service: 04/10/18 Mother's Due Date: 04/17/18 - Delivery Note Labor: Augmented by ARM, Augmented by Oxytocin Cervical Ripening Method: Misoprostil, Oxytocin, Other (see below) Other Cervical Ripening Method: arom Delivery Outcome: Livebirth (Female liveborn 1723 hrs. on Friday04/10/18 weight 4020 g/8 lbs. 14 oz. Apgars 6/9 nuchal cord 2) Delivery Method: Spontaneous Vaginal Delivery-Single Delivery Mode: Spontaneous Presentation: Left Occiput Anterior (MIA) Nuchal Cord: Present (2) Prep: Povidone-Iodine (Betadine Anesthesia Type: Epidural Episiotomy Type: None Laceration: None Placenta: Intact, Spontaneous (1725 hrs. on Friday) Cord: 3 Vessels Estimated Blood Loss: 250 Resuscitation Needed: No : Suctioned, Bulb Syringe, Stimulated, Warmed, [place] Used, Warmer Used Provider: Avery Horton Score 1 min: 6 Score 5 min: 9 - General Info Date of Service: 04/10/18 Functional Status: Reports: Pain Controlled - Review of Systems General: Reports: No Symptoms HEENT: Reports: No Symptoms Pulmonary: Reports: No Symptoms Cardiovascular: Reports: No Symptoms Gastrointestinal: Reports: No Symptoms Genitourinary: Reports: No Symptoms Musculoskeletal: Reports: No Symptoms Skin: Reports: No Symptoms Neurological: Reports: No Symptoms Psychiatric: Reports: No Symptoms - Patient Data Vitals - Most Recent: Last Vital Signs Temp 97.7 F 04/10/18 07:59 Pulse 86 04/10/18 07:59 Resp 18 04/10/18 09:14 BP 136/86 04/10/18 07:59 Pulse Ox Weight - Most Recent: 214 lb I&O - Last 24 Hours: Intake & Output 04/10/18 04/10/18 04/10/18 06:59 14:59 22:59 Intake Total 120 Balance 120 Lab Results Last 24 Hours: Laboratory Results - last 24 hr 04/10/18 04/10/18 04/10/18 Range/Units 08:21 08:21 08:21 WBC 7.82 (3.98-10.04) K/mm3 RBC 4.31 (3.98-5.22) M/mm3 Hgb 10.5 L (11.2-15.7) gm/L Hct 33.3 L (34.1-44.9) % MCV 77.3 L (79.4-94.8) fl MCH 24.4 L (25.6-32.2) pg MCHC 31.5 L (32.2-35.5) g/dl RDW Std Deviation 40.7 (36.4-46.3) fL Plt Count 330 (182-369) K/mm3 MPV 9.9 (9.4-12.3) fl Neut % (Auto) 61.6 (34.0-71.1) % Lymph % (Auto) 26.9 (19.3-51.7) % [place] % (Auto) 9.3 (4.7-12.5) % Eos % (Auto) 1.3 (0.7-5.8) Baso % (Auto) 0.4 (0.1-1.2) % Neut # (Auto) 4.82 (1.56-6.13) K/mm3 Lymph # (Auto) 2.10 (1.18-3.74) K/mm3 [place] # (Auto) 0.73 H (0.24-0.36) K/mm3 Eos # (Auto) 0.10 (0.04-0.36) K/mm3 Baso # (Auto) 0.03 (0.01-0.08) K/mm3 RPR Non-reactive (NONREACTIVE) Blood Type O POSITIVE Gel Antibody Screen Negative Med Orders - Current: Current Medications Diphenhydramine HCl (Benadryl) 25 mg IVPUSH Q6H PRN PRN Reason: Pruritis Ephedrine Sulfate (Ephedrine Sulfate) 5 mg IVPUSH ASDIRECTED PRN PRN Reason: Hypotension Fentanyl (Sublimaze) 100 mcg EPIDUR Q3H PRN PRN Reason: Pain Last Admin: 04/10/18 13:36 Dose: 100 mcg Fentanyl/Bupivacaine HCl (Iubnmplc-Maotc-Jv 2 Mcg/Ml-0.125%) 100 ml EP ASDIRECTED KAYLEIGH Last Admin: 04/10/18 13:37 Dose: 100 ml Lactated Ringer's (Ringers, Lactated) 1,000 mls @ 100 mls/hr IV ASDIRECTED KAYLEIGH Last Admin: 04/10/18 13:29 Dose: 999 mls/hr Oxytocin/Lactated Ringer's (Pitocin In Lr 10 Units/1,000 Ml) 10 unit in 1,000 mls @ 500 mls/hr IV .CONTINUOUS KAYLEIGH Oxytocin/Lactated Ringer's (Pitocin In Lr 10 Units/1,000 Ml) 10 unit in 1,000 mls @ 12 mls/hr IV TITRATE KAYLEIGH; Protocol Last Titration: 04/10/18 16:40 Dose: 4 munits/min, 24 mls/hr Misoprostol (Cytotec) 50 mcg VAG .ONETIME KAYLEIGH Last Admin: 04/10/18 11:03 Dose: 50 mcg Nalbuphine HCl (Nubain) 10 mg IVPUSH Q2H PRN PRN Reason: pain Ondansetron HCl (Zofran) 4 mg IVPUSH Q4H PRN PRN Reason: Nausea/Vomiting Ondansetron HCl (Zofran) 4 mg IVPUSH ONETIME PRN PRN Reason: Nausea/Vomiting Sodium Chloride (Saline Flush) 10 ml FLUSH ASDIRECTED PRN PRN Reason: Keep Vein Open Discontinued Medications Misoprostol (Cytotec) Confirm Administered Dose 25 mcg .ROUTE .STK-MED ONE Stop: 04/10/18 08:01 Last Admin: 04/10/18 11:04 Dose: Not Given Misoprostol (Cytotec) 25 mcg VAG ONETIME ONE Stop: 04/10/18 08:10 Last Admin: 04/10/18 08:03 Dose: 25 mcg - Exam General: Alert, Oriented HEENT: Pupils Equal, Pupils Reactive, Mucous Membr. Moist/[place] (Female) Exam: Normal External Exam Extremities: Normal Inspection, Normal Range of Motion, Non-Tender, No Pedal Edema, Normal Capillary Refill Skin: Warm, Dry, Intact Psy/Mental Status: Alert, Normal Affect, Normal Mood - Problem List & Annotations (1) 39 weeks gestation of SNOMED Code(s): 45386421 Code(s): Z3A.39 - 39 WEEKS GESTATION OF Status: Acute Current Visit: No (2) Double nuchal cord SNOMED Code(s): 488800243 Code(s): O69.1XX0 - LABOR AND DELIVERY COMP BY CORD AROUND NECK, W COMPRSN, UNSP Status: Acute Current Visit: Yes Qualifiers: Fetus number: single or unspecified fetus Qualified Code(s): O69.1XX0 - Labor and delivery complicated by cord around neck, with compression, not applicable or unspecified (3) Delivery normal SNOMED Code(s): 51938700, 694281476 Code(s): O80 - ENCOUNTER FOR FULL-TERM UNCOMPLICATED DELIVERY Status: Acute Current Visit: Yes - Problem List Review Problem List Initiated/Reviewed/Updated: No - My Orders Last 24 Hours: My Active Orders 04/10/18 07:59 Patient Status [ADT] Routine Activity as Tolerated [RC] PFP Communication Order [RC] ASDIRECTED Notify Provider [RC] PFP Notify Provider [RC] PRN Urinary Catheter Assessment [RC] ASDIRECTED Vital Signs [RC] PER UNIT ROUTINE Nalbuphine [Nubain] 10 mg IVPUSH Q2H PRN Ondansetron [Zofran] 4 mg IVPUSH Q4H PRN Sodium Chloride 0.9% [Saline Flush] 10 ml FLUSH ASDIRECTED PRN Electronic Heart Tones Ext w TOCO [WOMSER] Routine Electronic Heart Tones Internal [WOMSER] Per Unit Routine Peripheral IV Insertion Adult [OM.PC] Routine Resuscitation Status Routine 04/10/18 08:00 Lactated Ringers [Ringers, Lactated] 1,000 ml IV ASDIRECTED Oxytocin/Lactated Ringers [Pitocin in LR 10 Units/1,000 ML] 10 unit in 1,000 ml IV .CONTINUOUS 04/10/18 08:07 Heart Tones [RC] ASDIRECTED Peripheral IV Care [RC] . DIRECTED 04/10/18 08:09 Pump Management, Intrathecal [RC] ASDIRECTED 04/10/18 11:00 miSOPROStol [Cytotec] 50 mcg VAG .ONETIME 04/10/18 15:30 Oxytocin/Lactated Ringers [Pitocin in LR 10 Units/1,000 ML] 10 unit in 1,000 ml IV TITRATE 04/10/18 Breakfast Regular Diet [DIET] - Plan Plan:: And induction of labor and delivery.
[2018-04-10] MEDS ORDERED: Lanolin 100% Cream 7 GM Tube TOP PRN (18:56)
[2018-04-10] MEDS ORDERED: Witch Hazel Medicated Pads 100/Jar TOP PRN (18:56)
[2018-04-10] MEDS ORDERED: Docusate Sodium 100 MG Cap PO PRN (18:56)
[2018-04-10] MEDS ORDERED: Simethicone 80 MG Tab.Chew PO PRN (18:56)
[2018-04-10] MEDS ORDERED: Benzocaine/Menthol 20%-0.5% Spray 56 GM Canister TOP PRN (18:56)
[2018-04-10] MEDS ORDERED: Acetaminophen 325 MG Tab PO PRN (18:56)
[2018-04-10] MEDS: Acetaminophen/HYDROcodone 325-5 MG Tab PO PRN (19:22)
[2018-04-10] MEDS: Acyclovir 200 MG Cap PO SCH (21:09)
[2018-04-10] MEDS ORDERED: Lidocaine 1.5% with EPINEPHrine 1:200,000 5 ML Amp ONE (22:00)
[2018-04-10] MEDS ORDERED: Bupivacaine 0.25% 10 ML SDV ONE (22:00)
[2018-04-11] MEDS: Acetaminophen/HYDROcodone 325-5 MG Tab PO PRN (01:21)
[2018-04-11] MEDS ORDERED: Acetaminophen/oxyCODONE 325-5 MG Tab PO ONE (08:23)
[2018-04-11] MEDS ORDERED: Ketorolac 10 MG Tab PO ONE (08:42)
--- NOTE | 2018-04-11 08:47 | PCM.PNPP ---
- General Info Date of Service: 04/11/18 Functional Status: Reports: Tolerating Diet, Ambulating, Urinating - Review of Systems General: Reports: No Symptoms Pulmonary: Reports: No Symptoms Cardiovascular: Reports: No Symptoms Gastrointestinal: Reports: Abdominal Pain Genitourinary: Reports: No Symptoms Musculoskeletal: Reports: No Symptoms - Patient Data Vital Signs - Most Recent: Last Vital Signs Temp 36.6 C 04/11/18 02:57 Pulse 68 04/11/18 02:57 Resp 17 04/11/18 02:57 BP 120/84 04/11/18 02:57 Pulse Ox 100 04/11/18 02:57 Weight - Most Recent: 97.069 kg I&O - Last 24 Hours: Intake & Output 04/10/18 04/11/18 04/11/18 22:59 06:59 14:59 Intake Total 3000 Output Total 1100 Balance 1900 Lab Results - Last 24 Hours: Laboratory Results - last 24 hr 04/10/18 04/10/18 04/11/18 Range/Units 08:21 08:21 05:45 WBC 10.56 H (3.98-10.04) K/mm3 RBC 4.04 (3.98-5.22) M/mm3 Hgb 9.8 L (11.2-15.7) gm/L Hct 31.4 L (34.1-44.9) % MCV 77.7 L (79.4-94.8) fl MCH 24.3 L (25.6-32.2) pg MCHC 31.2 L (32.2-35.5) g/dl RDW Std Deviation 40.6 (36.4-46.3) fL Plt Count 294 (182-369) K/mm3 MPV 10.2 (9.4-12.3) fl Neut % (Auto) 71.2 H (34.0-71.1) % Lymph % (Auto) 18.6 L (19.3-51.7) % [place] % (Auto) 8.0 (4.7-12.5) % Eos % (Auto) 1.3 (0.7-5.8) Baso % (Auto) 0.2 (0.1-1.2) % Neut # (Auto) 7.53 H (1.56-6.13) K/mm3 Lymph # (Auto) 1.96 (1.18-3.74) K/mm3 [place] # (Auto) 0.84 H (0.24-0.36) K/mm3 Eos # (Auto) 0.14 (0.04-0.36) K/mm3 Baso # (Auto) 0.02 (0.01-0.08) K/mm3 RPR Non-reactive (NONREACTIVE) Blood Type O POSITIVE Gel Antibody Screen Negative Med Orders - Current: Current Medications Acetaminophen (Tylenol) 650 mg PO Q4H PRN PRN Reason: mild pain or fever Acyclovir (Zovirax) 400 mg PO TID [facility] Last Admin: 04/10/18 21:09 Dose: 400 mg Benzocaine/Menthol (Dermoplast Pain Relief [place]) 0 gm TOP ASDIRECTED PRN PRN Reason: Perineal Comfort Measure Last Admin: 04/10/18 19:17 Dose: 1 can Docusate Sodium (Colace) 100 mg PO BID PRN PRN Reason: Constipation Emollient Ointment (Lansinoh Hpa) 0 gm TOP ASDIRECTED PRN PRN Reason: Sore Nipples Simethicone (Simethicone) 80 mg PO Q4H PRN PRN Reason: Gas Witch Antoinette (Tucks) 1 pad TOP ASDIRECTED PRN PRN Reason: Hemorrhoid pain Last Admin: 04/10/18 19:17 Dose: 1 can Discontinued Medications Hydrocodone Bitart/Acetaminophen ([place] 325-5 Mg) 1 tab PO Q6H PRN PRN Reason: Pain Last Admin: 04/11/18 01:21 Dose: 1 tab Diphenhydramine HCl (Benadryl) 25 mg IVPUSH Q6H PRN PRN Reason: Pruritis Ephedrine Sulfate (Ephedrine Sulfate) 5 mg IVPUSH ASDIRECTED PRN PRN Reason: Hypotension Fentanyl (Sublimaze) 100 mcg EPIDUR Q3H PRN PRN Reason: Pain Last Admin: 04/10/18 13:36 Dose: 100 mcg Fentanyl/Bupivacaine HCl (Yjayfdem-Dirbm-Sz 2 Mcg/Ml-0.125%) 100 ml EP ASDIRECTED [facility] Last Admin: 04/10/18 13:37 Dose: 100 ml Lactated Ringer's (Ringers, Lactated) 1,000 mls @ 100 mls/hr IV ASDIRECTED KAYLEIGH Last Admin: 04/10/18 13:29 Dose: 999 mls/hr Oxytocin/Lactated Ringer's (Pitocin In Lr 10 Units/1,000 Ml) 10 unit in 1,000 mls @ 500 mls/hr IV .CONTINUOUS KAYLEIGH Oxytocin/Lactated Ringer's (Pitocin In Lr 10 Units/1,000 Ml) 10 unit in 1,000 mls @ 12 mls/hr IV TITRATE KAYLEIGH; Protocol Last Titration: 04/10/18 17:24 Dose: 500 mls/hr Ketorolac Tromethamine (Toradol) 10 mg PO ONETIME ONE Stop: 04/11/18 08:43 Misoprostol (Cytotec) Confirm Administered Dose 25 mcg .ROUTE .STK-MED ONE Stop: 04/10/18 08:01 Last Admin: 04/10/18 11:04 Dose: Not Given Misoprostol (Cytotec) 25 mcg VAG ONETIME ONE Stop: 04/10/18 08:10 Last Admin: 04/10/18 08:03 Dose: 25 mcg Misoprostol (Cytotec) 50 mcg VAG .ONETIME KAYLEIGH Last Admin: 04/10/18 11:03 Dose: 50 mcg Nalbuphine HCl (Nubain) 10 mg IVPUSH Q2H PRN PRN Reason: pain Ondansetron HCl (Zofran) 4 mg IVPUSH Q4H PRN PRN Reason: Nausea/Vomiting Ondansetron HCl (Zofran) 4 mg IVPUSH ONETIME PRN PRN Reason: Nausea/Vomiting Oxycodone/Acetaminophen (Percocet 325-5 Mg) 2 tab PO ONETIME ONE Stop: 04/11/18 08:24 Sodium Chloride (Saline Flush) 10 ml FLUSH ASDIRECTED PRN PRN Reason: Keep Vein Open - Interaction Disposition, : in Room with Family Infant Interaction: Holding Infant Infant Feeding: Breastfed Infant; Nursed Well Support Person: - Recovery Exam Fundal Tone: Firm Fundal Level: 1 Fingerbreadths Below Umbilicus Fundal Placement: Midline Lochia Amount: Small, Moderate Lochia Color: Rubra/Red Perineum Description: Intact, Minimal Bruising/Swelling Bladder Status: Voiding - Exam General: Alert, Oriented, Cooperative GI/Abdominal Exam: Soft, Non-Tender Extremities: Normal Inspection Skin: Warm, Dry, Intact - Problem List & Annotations (1) Delivery normal SNOMED Code(s): 03130885, 524568358 Code(s): O80 - ENCOUNTER FOR FULL-TERM UNCOMPLICATED DELIVERY Status: Acute Current Visit: Yes (2) 39 weeks gestation of SNOMED Code(s): 26521459 Code(s): Z3A.39 - 39 WEEKS GESTATION OF Status: Acute Current Visit: No - Problem List Review Problem List Initiated/Reviewed/Updated: Yes - Assessment Assessment:: PPD#1 from - Plan Plan:: * Routine cares * Patient with orders for Lortab overnight for complaints of cramping with breast feeding. States this is not strong enough for her cramping. Encouraged heating pad use and bath use. Will give one time dose of percocet, but will not send patient out with Rx for narcotic after uncomplicated * Discharge home today
--- NOTE | 2018-04-11 08:53 | PCM.DCSUM1 ---
Discharge Summary - Discharge Data Discharge Date: 04/11/18 Discharge Disposition: Home, Self-Care 01 Condition: Good - Discharge Diagnosis/Problem(s) (1) 39 weeks gestation of SNOMED Code(s): 15291740 ICD Code: Z3A.39 - 39 WEEKS GESTATION OF Status: Acute Current Visit: No (2) Delivery normal SNOMED Code(s): 74210316, 180888514 ICD Code: O80 - ENCOUNTER FOR FULL-TERM UNCOMPLICATED DELIVERY Status: Acute Current Visit: Yes - Patient Summary/Data Complications: None Consults: None Recommended Follow-up Testing/Procedures: Follow up with Dr. Horton in 1-2 weeks for check Hospital Course: 27 y/o admitted at 39 0/7 wks for elective IOL. Patient did well and underwent uncomplicated . See delivery note. did well and was discharged home on PPD#1 per her preference - Patient Instructions Diet: Regular Diet as Tolerated Activity: As Tolerated Activity, Other: Pelvic Rest for 6 weeks Driving: May Drive Today Showering/Bathing: May Shower Showering/Bathing, Other: May Bathe Notify Provider of: Fever, Increased Pain, Swelling and Redness, Drainage, Nausea and/or Vomiting - Discharge Plan *PRESCRIPTION DRUG MONITORING PROGRAM REVIEWED*: Not Applicable *COPY OF PRESCRIPTION DRUG MONITORING REPORT IN PATIENT JUAN CARLOS: Yes Home Medications: Home Meds Vit/Iron Fumarate/FA [ Vitamin Tablet] 1 tab PO DAILY 08/24/15 [History] Acetaminophen [Tylenol] 650 mg PO Q4H PRN tablet 04/11/18 [Rx] Docusate Sodium [Colace] 100 mg PO BID PRN cap 04/11/18 [Rx] Referrals: Avery Horton MD [Primary Care Provider] - (2 weeks for check ) - Discharge Summary/Plan Comment DC Time >30 min.: No - Patient Data Vitals - Most Recent: Last Vital Signs Temp 36.6 C 04/11/18 02:57 Pulse 68 04/11/18 02:57 Resp 17 04/11/18 02:57 BP 120/84 04/11/18 02:57 Pulse Ox 100 04/11/18 02:57 Weight - Most Recent: 97.069 kg I&O - Last 24 hours: Intake & Output 04/10/18 04/11/18 04/11/18 22:59 06:59 14:59 Intake Total 3000 Output Total 1100 Balance 1900 Lab Results - Last 24 hrs: Laboratory Results - last 24 hr 04/10/18 04/10/18 04/11/18 Range/Units 08:21 08:21 05:45 WBC 10.56 H (3.98-10.04) K/mm3 RBC 4.04 (3.98-5.22) M/mm3 Hgb 9.8 L (11.2-15.7) gm/L Hct 31.4 L (34.1-44.9) % MCV 77.7 L (79.4-94.8) fl MCH 24.3 L (25.6-32.2) pg MCHC 31.2 L (32.2-35.5) g/dl RDW Std Deviation 40.6 (36.4-46.3) fL Plt Count 294 (182-369) K/mm3 MPV 10.2 (9.4-12.3) fl Neut % (Auto) 71.2 H (34.0-71.1) % Lymph % (Auto) 18.6 L (19.3-51.7) % [place] % (Auto) 8.0 (4.7-12.5) % Eos % (Auto) 1.3 (0.7-5.8) Baso % (Auto) 0.2 (0.1-1.2) % Neut # (Auto) 7.53 H (1.56-6.13) K/mm3 Lymph # (Auto) 1.96 (1.18-3.74) K/mm3 [place] # (Auto) 0.84 H (0.24-0.36) K/mm3 Eos # (Auto) 0.14 (0.04-0.36) K/mm3 Baso # (Auto) 0.02 (0.01-0.08) K/mm3 RPR Non-reactive (NONREACTIVE) Blood Type O POSITIVE Gel Antibody Screen Negative Med Orders - Current: Current Medications Acetaminophen (Tylenol) 650 mg PO Q4H PRN PRN Reason: mild pain or fever Acyclovir (Zovirax) 400 mg PO TID KAYLEIGH Last Admin: 04/10/18 21:09 Dose: 400 mg Benzocaine/Menthol (Dermoplast Pain Relief [place]) 0 gm TOP ASDIRECTED PRN PRN Reason: Perineal Comfort Measure Last Admin: 04/10/18 19:17 Dose: 1 can Docusate Sodium (Colace) 100 mg PO BID PRN PRN Reason: Constipation Emollient Ointment (Lansinoh Hpa) 0 gm TOP ASDIRECTED PRN PRN Reason: Sore Nipples Simethicone (Simethicone) 80 mg PO Q4H PRN PRN Reason: Gas Witch Anotinette (Tucks) 1 pad TOP ASDIRECTED PRN PRN Reason: Hemorrhoid pain Last Admin: 04/10/18 19:17 Dose: 1 can Discontinued Medications Hydrocodone Bitart/Acetaminophen ([place] 325-5 Mg) 1 tab PO Q6H PRN PRN Reason: Pain Last Admin: 04/11/18 01:21 Dose: 1 tab Diphenhydramine HCl (Benadryl) 25 mg IVPUSH Q6H PRN PRN Reason: Pruritis Ephedrine Sulfate (Ephedrine Sulfate) 5 mg IVPUSH ASDIRECTED PRN PRN Reason: Hypotension Fentanyl (Sublimaze) 100 mcg EPIDUR Q3H PRN PRN Reason: Pain Last Admin: 04/10/18 13:36 Dose: 100 mcg Fentanyl/Bupivacaine HCl (Fbfotzmx-Uonjt-Gr 2 Mcg/Ml-0.125%) 100 ml EP ASDIRECTED KAYLEIGH Last Admin: 04/10/18 13:37 Dose: 100 ml Lactated Ringer's (Ringers, Lactated) 1,000 mls @ 100 mls/hr IV ASDIRECTED KAYLEIGH Last Admin: 04/10/18 13:29 Dose: 999 mls/hr Oxytocin/Lactated Ringer's (Pitocin In Lr 10 Units/1,000 Ml) 10 unit in 1,000 mls @ 500 mls/hr IV .CONTINUOUS KAYLEIGH Oxytocin/Lactated Ringer's (Pitocin In Lr 10 Units/1,000 Ml) 10 unit in 1,000 mls @ 12 mls/hr IV TITRATE KAYLEIGH; Protocol Last Titration: 04/10/18 17:24 Dose: 500 mls/hr Ketorolac Tromethamine (Toradol) 10 mg PO ONETIME ONE Stop: 04/11/18 08:43 Misoprostol (Cytotec) Confirm Administered Dose 25 mcg .ROUTE .STK-MED ONE Stop: 04/10/18 08:01 Last Admin: 04/10/18 11:04 Dose: Not Given Misoprostol (Cytotec) 25 mcg VAG ONETIME ONE Stop: 04/10/18 08:10 Last Admin: 04/10/18 08:03 Dose: 25 mcg Misoprostol (Cytotec) 50 mcg VAG .ONETIME KAYLEIGH Last Admin: 04/10/18 11:03 Dose: 50 mcg Nalbuphine HCl (Nubain) 10 mg IVPUSH Q2H PRN PRN Reason: pain Ondansetron HCl (Zofran) 4 mg IVPUSH Q4H PRN PRN Reason: Nausea/Vomiting Ondansetron HCl (Zofran) 4 mg IVPUSH ONETIME PRN PRN Reason: Nausea/Vomiting Oxycodone/Acetaminophen (Percocet 325-5 Mg) 2 tab PO ONETIME ONE Stop: 04/11/18 08:24 Last Admin: 04/11/18 08:34 Dose: 2 tab Sodium Chloride (Saline Flush) 10 ml FLUSH ASDIRECTED PRN PRN Reason: Keep Vein Open
[2018-04-11 15:32] VITALS: BP 126/86
[2018-04-11] MEDS: Acyclovir 200 MG Cap PO SCH ×2 (16:02)
== END 2018-04-11 19:35 | disposition home or self-care (01) | DRG 560 ==
LOC: JD.OB 06:59 → OBSVTOIN 17:23 → JD.OB 17:34
PROVIDERS: ADMIT Obstetrics & Gynecology; ATTEND Obstetrics & Gynecology
PROC: 3E033VJ Introduction of Other Hormone into Peripheral Vein, Percutaneous Approach (ICD-10-PCS; principal; 2018-04-10)
PROC: 10907ZC Drainage of Amniotic Fluid, Therapeutic from Products of Conception, Via Natural or Artificial Opening (ICD-10-PCS; principal; 2018-04-10)
PROC: 10E0XZZ Delivery of Products of Conception, External Approach (ICD-10-PCS; principal; 2018-04-10)
PROC: 3E0R3BZ Introduction of Anesthetic Agent into Spinal Canal, Percutaneous Approach (ICD-10-PCS; 2018-04-10)
PROC: 00HU33Z Insertion of Infusion Device into Spinal Canal, Percutaneous Approach (ICD-10-PCS; 2018-04-10)
DX: O98.32 Other infections with a predominantly sexual mode of transmission complicating childbirth (principal); A60.00 Herpesviral infection of urogenital system, unspecified; Z3A.39 39 weeks gestation of pregnancy; Z37.0 Single live birth; O99.344 Other mental disorders complicating childbirth; F41.9 Anxiety disorder, unspecified; F32.9 Major depressive disorder, single episode, unspecified; O99.02 Anemia complicating childbirth; D64.9 Anemia, unspecified; Z88.8 Allergy status to other drugs, medicaments and biological substances; Z87.440 Personal history of urinary (tract) infections; Z91.030 Bee allergy status; Z86.14 Personal history of Methicillin resistant Staphylococcus aureus infection
CPT/HCPCS: 01967; 36415; 51702; 59025; 59409; 85025; 86592; 86850; 86900; 86901; A9270-GY; J2590; J3010; J3490; J7120

== ENCOUNTER 2018-05-20 09:52 | Emergency (ER) | payer BC ==
--- NOTE | 2018-05-20 10:07 | EDM.PDOC ---
ED HPI GENERAL MEDICAL PROBLEM - General Chief Complaint: ENT Problem Stated Complaint: TONSILS REMOVED FRIDAY BLEEDING Time Seen by Provider: 05/20/18 10:07 Source of Information: Reports: Patient History Limitations: Reports: No Limitations - History of Present Illness INITIAL COMMENTS - FREE TEXT/NARRATIVE: 27-year-old female presents to the ED after having a sick stand show post- tonsillectomy hemorrhage last night about midnight. She believes was coming from the left side. This morning she did cough up a few clots as well. She gargled with salt water and ice water last night was able to get the bleeding stopped after about 5 minutes. She is day [address] Curtis removed her tonsils on Friday febrile in [place]. She is also 6 weeks . He' ll having significant amount of pain. Still following a soft diet. Onset: Today Onset Date: 05/20/18 Onset Time: 00:00 (Coughed and then started to have some brisk bleeding from the left side of her throat last night about midnight. This lasted for about 5 minutes. Subsequently she did cough up a few clots this morning) Duration: Hour(s): Location: Reports: Face (Coughed up blood bright red) Quality: Reports: Other ( about midnight last night and took about 5-10 minutes to get it to stop. diffuse burning pain both tonsillar fossa is post tonsillectomy day 5 postop.) Severity: Moderate Improves with: Reports: Other (She is using Percocet tablets when necessary and Motrin for pain relief) Worsens with: Reports: Eating Context: Denies: Activity (And drinking), Exercise, Lifting, Sick Contact, Trauma, Other Associated Symptoms: Reports: No Other Symptoms Treatments AD CLERK: Reports: Other (see below) (None.) Throat Pain Score (Numeric/FACES): 6 - Related Data Allergies Allergy/AdvReac Type Severity Reaction Status Date / Time ibuprofen Allergy Abdominal Verified 05/20/18 10:01 Pain venom-honey bee Allergy Anaphylactic Verified 05/20/18 10:01 [bee venom (honey bee)] Shock Home Meds: Home Meds Vit/Iron Fumarate/FA [ Vitamin Tablet] 1 tab PO DAILY 08/24/15 [History] Acetaminophen [Tylenol] 650 mg PO Q4H PRN tablet 04/11/18 [Rx] Hydrocodone/Acetaminophen [Hydrocodon-Acetaminophen 5-325] 1 each PO QID PRN [History] Past Medical History HEENT History: Reports: None Cardiovascular History: Reports: None Respiratory History: Reports: None Genitourinary History: Reports: UTI, Recurrent RN MIDWIFE History: Reports: , Spontaneous , Other (See Below) Other RN MIDWIFE History: HPV patient as of today is 6 weeks . 3 para 3 Musculoskeletal History: Reports: Other (See Below) Other Musculoskeletal History: right elbow and right "pinky" toe fracture Psychiatric History: Reports: Anxiety, Depression Hematologic History: Reports: Anemia Immunologic History: Reports: None (H/O HSV positive in past, no lesions on vulva or vagina today.) Oncologic (Cancer) History: Reports: Other (See Below) Other Oncologic History: HPV Dermatologic History: Reports: Eczema - Infectious Disease History Infectious Disease History: Reports: MRSA Other Infectious Disease History: 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 Has not been cleared. pt cannot recall which knee. - Past Surgical History HEENT Surgical History: Reports: Oral Surgery Musculoskeletal Surgical History: Reports: None Social & Family History - Family History Family Medical History: Noncontributory Cardiac: Reports: Hypertension, Other (See Below) Endocrine/Metabolic: Reports: Diabetes, type II, Hypothyroidism Oncologic: Reports: Breast - Caffeine Use Caffeine Use: Reports: None - Living Situation & Occupation Living situation: Reports: Single Occupation: Unemployed ED ROS ENT - Review of Systems Review Of Systems: See Below Constitutional: Reports: Malaise, Weakness, Fatigue, Decreased Appetite, Other. Denies: Fever, Chills HEENT: Reports: Throat Pain (Postop tonsillectomy 5 days ago. Still having significant throat pain.) Respiratory: Reports: No Symptoms ( Referred pain to both ears.) Cardiovascular: Reports: No Symptoms Endocrine: Reports: No Symptoms GI/Abdominal: Reports: No Symptoms : Reports: No Symptoms Musculoskeletal: Reports: No Symptoms Skin: Reports: No Symptoms Neurological: Reports: No Symptoms Psychiatric: Reports: No Symptoms Hematologic/Lymphatic: Reports: No Symptoms Immunologic: Reports: No Symptoms ED EXAM, ENT - Physical Exam Exam: See Below Exam Limited By: No Limitations General Appearance: Alert, WD/WN, Anxious, Mild Distress, Other (Currently has no active bleeding.) Mouth/Throat: Other (Inspection of the oral cavity shows no active bleeding at this time. Plasma subsalicylate is still coating the tonsillar fossa is quite well. There appears to be an area of the lower pole of the left tonsillar fossa that was the source of bleeding. Again only a small clot is present in this area at this time.) Head: Atraumatic, Normocephalic Neck: Lymphadenopathy (L), Lymphadenopathy (R) (Tenderness tenderness) Respiratory/Chest: No Respiratory Distress, Lungs Clear, Normal Breath Sounds, No Accessory Muscle Use Course - Vital Signs Last Recorded V/S: Last Vital Signs Temp 36.4 C 05/20/18 10:07 Pulse 95 05/20/18 10:07 Resp 16 05/20/18 10:07 BP 126/82 05/20/18 10:07 Pulse Ox 100 05/20/18 10:07 - Radiology Interpretation Free Text/Narrative:: 27-year-old female presents the ED after experiencing a post tonsillectomy hemorrhage from her left tonsil last evening about midnight. She coughed and started bleeding spontaneously. She had her tonsils removed by Dr. Curtis in [place] 5 days ago. At present she has no active bleeding but did cough up some clots this morning. She was advised by her ENT surgeon to come to the ED for follow-up. Doesn't there is no active bleeding in the business subsalicylate appears to be coating the tonsillar fossa is quite well. There is an area of bleeding that came from the lower pole of the left tonsillar fossa. It is not actively bleeding and deserves no treatment at this time. I will write a prescription for miracle mouthwash that she can use about every every 6 hours or half hour before eating swish and spit out. Also tetracaine lollipop to further alleviate her pain since Percocet does not seem to be doing it alone. Advised to return to the ED if she has any further active bleeding. She was advised she is at risk of further bleeding over the next 5 days. Departure - Departure Time of Disposition: 10:22 Disposition: Home, Self-Care 01 Condition: Fair Clinical Impression: Post-tonsillectomy hemorrhage - Discharge Information *PRESCRIPTION DRUG MONITORING PROGRAM REVIEWED*: Not Applicable *COPY OF PRESCRIPTION DRUG MONITORING REPORT IN PATIENT JUAN CARLOS: Not Applicable Instructions: Tonsillectomy, Adult, Care After, [id number] Referrals: Mely Faustin MD [Primary Care Provider] - Forms: ED Department Discharge Additional Instructions: Evaluation the emergency room today in regards to having a post tonsillectomy hemorrhage from the left tonsil last night around midnight. You were able to get the bleeding stopped on her own with saltwater gargle and ice water. There is evidence on examination of having been some bleeding from the lower pole of the left tonsil. However otherwise the business subsalicylate is coating the tonsillar fossa is bilaterally very well. You're prone to having further bleeding over the next 5 days and if it is significant we can get it stopped and 5-10 minutes you need to return to the ED. I have written a prescription for miracle mouthwash which contains lidocaine and Benadryl that you can use about a half hour before meals for ideally about 4 times a day and is a 10 mils solution that you swish with and then spit out. Continue Percocet tabs 5/325-- usually 2 every 4-6 hours for pain relief. Motrin 600 mg every 6 hours to reduce pain and inflammation or Aleve 2 tablets every 8 hours for pain and inflammation. I also phoned in a few tetracaine lollipops that you can suck on to relieve pain. This often will last for 4-6 hours for pain relief and I suggest one lollipops before bedtime. This prescription was phoned into her [facility] pharmacy which is in the [facility] or [facility]. The reason for this as this is the only drugstore that compounds these formulations of medication.
[2018-05-20 10:09] VITALS: BP 126/82
== END 2018-05-20 10:43 | disposition home or self-care (01) ==
LOC: JD.ED 09:52
DX: J95.830 Postprocedural hemorrhage of a respiratory system organ or structure following a respiratory system procedure (principal); Z79.899 Other long term (current) drug therapy; Z98.890 Other specified postprocedural states
CPT/HCPCS: 99283

== ENCOUNTER 2020-12-12 08:17 | Day surgery (SDC) | payer BC, MEDICAID ==
[~2020-12-12 08:17] MED LIST: Lactated Ringers 1,000 ML IV SCH; Lidocaine 1%/Sod Bicarbonate in NS 8.4% 1 ML Syringe IDERM PRN; Sodium Chloride 0.9% 10 ML Syringe FLUSH PRN
--- NOTE | 2020-12-12 08:34 | PCM.PREANE ---
Preanesthetic Assessment - Procedure Proposed Procedure: tvh with bs - Anesthesia/Transfusion/Family Hx Anesthesia History: Prior Anesthesia Without Reaction Family History of Anesthesia Reaction: No Transfusion History: No Prior Transfusion(s) Type of Transfusion Reactions: Reports: Unknown - Review of Systems General: No Symptoms Pulmonary: No Symptoms Cardiovascular: No Symptoms Gastrointestinal: No Symptoms Neurological: No Symptoms Other: Reports: Depression, Anxiety - Physical Assessment NPO Status Date: 12/11/20 NPO Status Time: 22:30 Vital Signs: 126/77 85 97% 16 97.7 Height: 6 ft Weight: 95 kg ASA Class: 2 Mental Status: Alert & Oriented x3 Airway Class: Mallampati = 1 Dentition: Reports: Normal Dentition Thyro-Mental Finger Breadths: 3 Mouth Opening Finger Breadths: 3 ROM/Head Extension: Full Lungs: Clear to Auscultation, Normal Respiratory Effort Cardiovascular: Regular Rate, Regular Rhythm - Lab Values: Laboratory Last Values Urine Color Light yellow (Yellow) 12/12/20 08:12 Urine Appearance Clear (Clear) 12/12/20 08:12 Urine pH 6.0 (5.0-8.0) 12/12/20 08:12 Ur Specific [place] 1.015 (1.005-1.030) 12/12/20 08:12 Urine Protein Negative (Negative) 12/12/20 08:12 Urine Glucose (UA) Negative (Negative) 12/12/20 08:12 Urine Ketones Negative (Negative) 12/12/20 08:12 Urine Occult Blood Negative (Negative) 12/12/20 08:12 Urine Nitrite Negative (Negative) 12/12/20 08:12 Urine Bilirubin Negative (Negative) 12/12/20 08:12 Urine Urobilinogen 0.2 (0.2-1.0) 12/12/20 08:12 Ur Leukocyte Esterase Trace (Negative) H 12/12/20 08:12 Urine HCG, Qual Negative (NEGATIVE) 12/12/20 08:12 - Allergies Allergies/Adverse Reactions: Allergies Allergy/AdvReac Type Severity Reaction Status Date / Time ibuprofen Allergy Abdominal Verified 12/11/20 18:41 Pain venom-honey bee Allergy Anaphylactic Verified 12/11/20 18:41 [bee venom (honey bee)] Shock - Blood Blood Available: No - Acknowledgements Anesthesia Type Planned: General Anesthesia Pt an Appropriate Candidate for the Planned Anesthesia: Yes Alternatives and Risks of Anesthesia Discussed w Pt/Guardian: Yes Pt/Guardian Understands and Agrees with Anesthesia Plan: Yes PreAnesthesia Questionnaire HEENT History: Reports: Impaired Vision Cardiovascular History: Reports: None Respiratory History: Reports: None Gastrointestinal History: Reports: None Genitourinary History: Reports: UTI, Recurrent ELECTRO TECH History: Reports: , Spontaneous , Other (See Below) Other OB/BYN History: HPV, FAUSTO II, BV, , SAB, MENORRHAGIA, DYSMENORRHEA Musculoskeletal History: Reports: Other (See Below) Other Musculoskeletal History: right elbow and right "pinky" toe fracture Neurological History: Reports: Other (See Below) Other Neuro History: DIZZINESS Psychiatric History: Reports: Anxiety, Depression Endocrine/Metabolic History: Reports: None Hematologic History: Reports: Anemia Immunologic History: Reports: None Oncologic (Cancer) History: Reports: None, Other (See Below) Other Oncologic History: HPV Dermatologic History: Reports: Eczema, Other (See Below) Other Dermatologic History: HERPES SIMPLEX 2 - Infectious Disease History Infectious Disease History: Reports: None Other Infectious Disease History: 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 Negative MRSA testing - Past Surgical History Head Surgeries/Procedures: Reports: None HEENT Surgical History: Reports: Oral Surgery, Tonsillectomy Cardiovascular Surgical History: Reports: None Respiratory Surgical History: Reports: None GI Surgical History: Reports: None Female Surgical History: Reports: Cervical Conization, D&C Endocrine Surgical History: Reports: None Neurological Surgical History: Reports: None Musculoskeletal Surgical History: Reports: None Oncologic Surgical History: Reports: None Dermatological Surgical History: Reports: None - SUBSTANCE USE Tobacco Use Status *Q: Never Tobacco User Tobacco Use Within Last Twelve Months: No Second Hand Smoke Exposure: No Days Per Week of Alcohol Use: 0 Recreational Drug Use History: No - HOME MEDS Home Medications: Home Meds Acyclovir [Zovirax] 400 mg PO TID 08/29/20 [History] EPINEPHrine [Epipen] 1 dose IM ONETIME PRN 12/11/20 [History] - CURRENT (IN HOUSE) MEDS Current Meds: Current Medications Lactated Ringer's (Ringers, Lactated) 1,000 mls @ 125 mls/hr IV ASDIRECTED KAYLEIGH Lidocaine/Sodium Bicarbonate (Lidocaine 1%/Sod Bicarbonate In Ns 8.4% 1 Ml Syringe) 0.25 ml IDERM ONETIME PRN PRN Reason: Prior to IV Start Sodium Chloride (Sodium Chloride 0.9% 10 Ml Syringe) 10 ml FLUSH ASDIRECTED PRN PRN Reason: Keep Vein Open
[2020-12-12] MEDS ORDERED: Lidocaine 1% with EPINEPHrine 1:100,000 10 ML MDV ONE (09:35)
[2020-12-12] MEDS ORDERED: Sodium Chloride 0.9% 50 ML SDV ONE (09:35)
[2020-12-12] MEDS ORDERED: Dexamethasone 4 MG/ML 5 ML MDV ONE (09:43)
[2020-12-12] MEDS ORDERED: Ketorolac 30 MG/ML SDV ONE (09:43)
[2020-12-12] MEDS ORDERED: fentaNYL 250 MCG/5 ML SDV ONE (09:43)
[2020-12-12] MEDS ORDERED: Rocuronium 50 MG/5 ML Vial ONE (09:43)
[2020-12-12] MEDS ORDERED: Propofol 200 MG/20 ML SDV ONE (09:43)
[2020-12-12] MEDS ORDERED: Midazolam 1 MG/ML 2 ML SDV ONE (09:43)
[2020-12-12] MEDS ORDERED: Ondansetron 4 MG/2 ML SDV ONE ×2 (09:43→10:38)
[2020-12-12] MEDS ORDERED: Lidocaine 1% 4 ML ONE (09:43)
[2020-12-12] MEDS ORDERED: ceFAZolin 1 GM Vial ONE (10:07)
[2020-12-12] MEDS ORDERED: HYDROmorphone 1 MG/ML Syringe ONE (10:14)
[2020-12-12] MEDS ORDERED: Lactated Ringers 1,000 ML ONE (10:20)
[2020-12-12] MEDS ORDERED: fentaNYL 100 MCG/2 ML SDV ONE (10:26)
[2020-12-12] MEDS ORDERED: Acetaminophen/oxyCODONE 325-5 MG Tab PO PRN (10:48)
[2020-12-12] MEDS ORDERED: Ondansetron 4 MG/2 ML SDV IVPUSH PRN (10:48)
--- NOTE | 2020-12-12 10:53 | PCM.OPNOTE ---
- General Post-Op/Procedure Note Date of Surgery/Procedure: 12/12/20 Operative Procedure(s): Total vaginal hysterectomy with bilateral salpingectomy Findings: Uterus upper limits normal size. Fallopian tubes were unremarkable. Ovaries were reproductive age in appearance and without pathology. Patient has a grade 1 cystocele, grade 1 rectocele and grade 1 uterine descensus upon first evaluation. Multiparous canal noted. Pre Op Diagnosis: 1. Dysmenorrhea. 2. Menorrhagia Post-Op Diagnosis: Same Anesthesia Technique: General ET Tube Other Anesthesia Type: Lidocaine quarter percent with [id number] cc total. Primary Surgeon: Binu Cerrato Secondary Surgeon: Marie Tomas Anesthesia Provider: Tanner Villa Reason Assistant News Director Was Necessary: Retraction, assistance, patient safety, quality of care. Pathology: Uterus, bilateral fallopian tubes in one specimen container.. Fluid Replacement, Intraop: 1,800 EBL in mLs: 150 Complications: None Condition: Good Free Text/Narrative:: Surgery duration: 28 minutes Procedure: The patient was placed in supine position on the operating table. General endotracheal anesthesia was accomplished. After positioning, and adequate prep and drape, the procedure was then performed. Sterile speculum was placed in the vagina and cervix was visualized. Cervix was injected with lidocaine quarter percent with epinephrine-20 mL used. A full circumference incision was made in the cervical epithelium. The bladder was pushed well back off cervix. Posterior cul-de-sac was then entered sharply without problems. Left uterosacral was crossclamped with a Enseal vessel closure system. The left uterosacral and then the right uterosacral ligament pedicles were developed using the Enseal system. The anterior cul-de-sac was then entered without problems and the uterine vasculature, cardinal ligament and broad ligament then developed using Enseal vessel closure system. The uterus was inverted at this time and upper broad ligament fallopian tube pedicles were crossclamped with Valeria clamps. Specimen was totally removed. Both these pedicles were then secured with the Enseal vessel closure system. Left and right fallopian tube was normal in appearance.. Using Enseal vessel closure system each of the tubes was then removed and sent with the specimen. The patient was found to be hemostatically intact at this time. Vaginal cuff was sutured for hemostatic reasons with a running locked suture of 0 Monocryl from the 2 o'clock position to the 10 o'clock position posteriorly. Vaginal cuff was then closed from right to left side with a running locked suture of 0 Monocryl. Patient was returned to supine position and awakened from general endotracheal anesthesia. She tolerated the procedure and left the operating room in satisfactory condition.
[2020-12-12] MEDS ORDERED: Ketorolac 30 MG/ML SDV IVPUSH SCH (11:00)
[2020-12-12] MEDS ORDERED: fentaNYL 100 MCG/2 ML SDV IVPUSH PRN (11:07)
--- NOTE | 2020-12-12 11:08 | PCM.POSTAN ---
POST ANESTHESIA ASSESSMENT - MENTAL STATUS Mental Status: Alert, Oriented - VITAL SIGNS Vital Signs: Last Vital Signs Temp 36.5 C 12/12/20 08:55 Pulse 85 12/12/20 08:55 Resp 16 12/12/20 08:55 BP 126/77 12/12/20 08:55 Pulse Ox 97 12/12/20 08:55 - RESPIRATORY Respiratory Status: Respiratory Rate WNL, Airway Patent, O2 Saturation Stable, Supplemental Oxygen - CARDIOVASCULAR CV Status: Pulse Rate WNL, Blood Pressure Stable - GASTROINTESTINAL GI Status: No Symptoms - PAIN Pain Score: 0 - POST OP HYDRATION Hydration Status: Adequate & Stable - OBSERVATIONS Free Text/Narrative:: no anesthesia complications noted
[2020-12-12 14:02] VITALS: BP 112/77; PULSE 74
[2020-12-12] MEDS ORDERED: Ibuprofen 600 MG Tab PO PRN (17:00)
== END 2020-12-12 14:00 | disposition home or self-care (01) ==
LOC: JD.SDS 08:17
PROVIDERS: ATTEND Obstetrics & Gynecology
DX: N80.0 Endometriosis of uterus (principal); N72 Inflammatory disease of cervix uteri; N81.6 Rectocele; N81.4 Uterovaginal prolapse, unspecified; Z91.030 Bee allergy status; Z88.8 Allergy status to other drugs, medicaments and biological substances; Z79.899 Other long term (current) drug therapy; Z98.890 Other specified postprocedural states; Z87.891 Personal history of nicotine dependence
CPT/HCPCS: 36415; 58262; 81003; 81025; 85025; 86850; 86900; 86901; A9270; J0690; J1100; J1170; J1885; J2250; J2405; J2704; J3010; J7120

== ENCOUNTER 2023-06-16 11:14 | Emergency (ER) | payer BC ==
[2023-06-16 13:00] LABS: BASOPHILS ABSOLUTE AUTO 0.1 K/mm3 (0.0-0.2); BASOPHILS PERCENT AUTO 0.6 % (0.0-1.0); EOSINOPHILS ABSOLUTE AUTO 0.1 K/mm3 (0.0-0.4); EOSINOPHILS PERCENT AUTO 0.9 % (0.0-6.0); HEMATOCRIT 38.6 % (37.0-47.0); HEMOGLOBIN 13.3 gm/dl (12.0-16.0); IMMATURE GRAN ABSOLUTE AUTO 0.13 K/mm3 (0.00-0.05); IMMATURE GRAN PERCENT AUTO 0.8 % (0.0-0.4); LYMPHOCYTES ABSOLUTE AUTO 1.9 K/mm3 (1.0-4.8); LYMPHOCYTES PERCENT AUTO 12.1 % (24.0-44.0); MEAN CORPUSCULAR HEMOGLOBIN 30.6 pg (28.0-32.0); MEAN CORPUSCULAR HGB CONC 34.5 g/dl (32.0-36.0); MEAN CORPUSCULAR VOLUME 88.7 fl (83.0-99.0); MEAN PLATELET VOLUME 9.6 fl (9.4-12.3); MONOCYTES ABSOLUTE AUTO 1.2 K/mm3 (0.0-0.8); MONOCYTES PERCENT AUTO 7.5 % (0.0-8.0); NEUTROPHILS ABSOLUTE AUTO 12.3 K/mm3 (1.8-7.7); NEUTROPHILS PERCENT AUTO 78.1 % (41.0-71.0); PLATELET COUNT,PLT 301 K/mm3 (150-400); RED BLOOD CELL COUNT 4.35 M/mm3 (4.10-5.30); WHITE BLOOD CELL COUNT,WBC 15.68 K/mm3 (3.9-11.3)
[2023-06-16] MEDS: Metoclopramide 10 MG/2 ML SDV IVPUSH ONE (13:12)
[2023-06-16] MEDS: Sodium Chloride 0.9% 10 ML Syringe FLUSH PRN (13:12)
[2023-06-16] MEDS: Lactated Ringers 1,000 ML IV ONE (13:12)
[2023-06-16 13:19] LABS: ALBUMIN 3.6 g/dl (3.4-5.0); ANION GAP 12.7 (5-15); BILIRUBIN TOTAL 0.2 mg/dL (0.2-1.0); BUN/CREATININE RATIO 13.3 (14-18); CALCIUM 9.1 mg/dL (8.5-10.1); CREATININE 0.9 mg/dL (0.55-1.02); EST CRCL DRUG DOSING (CG) 103.56 mL/min; POTASSIUM,K 3.7 mEq/L (3.5-5.1); PROTEIN TOTAL,TP 7.4 g/dl (6.4-8.2)
[2023-06-16 16:48] VITALS: BP 100/62; PULSE 87
== END 2023-06-16 15:18 | disposition home or self-care (01) ==
LOC: JD.ED 11:14
DX: R42 Dizziness and giddiness (principal); T50.905A Adverse effect of unspecified drugs, medicaments and biological substances, initial encounter; Z91.030 Bee allergy status; Z88.6 Allergy status to analgesic agent; Z79.899 Other long term (current) drug therapy
CPT/HCPCS: 36415; 80053; 85025; 96374; 99284; J2765; J3490; J7120